=== PATIENT | female | born 1985 | race Caucasian/White ===

== ENCOUNTER 2016-06-20 18:45 | Emergency (ER) | payer OTHER ==
[~2016-06-20] VITALS: Ht 165.1 cm; Wt 82.3 kg
[~2016-06-20 18:45] MED LIST: PRLSR20 PO
[2016-06-20 18:47] VITALS: TEMP 36.9; Ht 165.1 cm; Wt 82.3 kg
[2016-06-20] MEDS ORDERED: HYDROmorphone INJ 2 MG/ML SYR/VIAL IM STA (19:00)
[2016-06-20] MEDS ORDERED: PROMETHAZINE HCL INJ 25 MG/ML 1 ML VIAL IM STA (19:00)
[2016-06-20 19:22] VITALS: BP 148/109; PULSE 79; O2SAT 98
--- NOTE | 2016-06-22 12:59 | EMERGENCY ROOM VISIT NOTE ---
ED Visit Note First contact with patient: 18:50 CHIEF COMPLAINT: Migraine headache. HISTORY OF PRESENT ILLNESS: Ms. Henson is a 30 year-old white female who ambulates into the ED accompanied by a male friend complaining of a migraine headache. She reports a gradual onset of a severe migraine headache that started approximately 5 hours ago. The pain is constant and it is slowly increasing in severity. This is not the worst headache of the life and is similar to previous migraines. Currently she describes the headache as a throbbing sensation/pain in the over the bilateral/occipital areas. She rates the pain a 9/10. The pain is nonradiating. She has not identified any aggravating or alleviating factors related to the pain. She reports she has taken ibuprofen without relief of her discomfort. There is been associated nausea without vomiting, mild light and hearing sensitivity. She denies fever, chills, sinus infection, runny nose, sore throat, weakness or numbness of the extremities, difficulty with speech, hearing or vision, trauma to the head and neck pain/stiffness. REVIEW OF SYSTEMS: As noted above in History of Present Illness. All body systems were reviewed with this patient and found to be negative unless noted above otherwise. PAST MEDICAL HISTORY: Pneumonia, unspecified stomach stomach disorder, leukemia , anemia, chronic fatigue syndrome, scoliosis, appendectomy, femur fracture repair. CURRENT MEDICATIONS: Multivitamins, control, iron, Protonix, Flexeril, Vicodin. ALLERGIES TO MEDICATIONS: Imitrex, penicillin, oxycodone. SOCIAL HISTORY: Patient is not employed; she lives by herself and feels safe in her home environment; she denies tobacco use; she admits to rare social alcohol use. PHYSICAL EXAM: Vital Signs: Date Time Temp Pulse Resp B/P Pulse Ox O2 Delivery O2 Flow Rate FiO2 06/20/16 19:22 79 18 148/109 98 06/20/16 18:47 36.9 91 18 165/106 96 Room Air GENERAL: 30 year-old white female in moderate distress due to pain, afebrile and hemodynamically stable. NEUROLOGIC: Awake, alert and oriented to person place and time. Answering questions appropriately and following commands. Cranial nerves II-XII grossly intact. No focal neurologic deficits noted. SKIN: Warm, dry and pink. No rashes, lesions or soft tissue trauma noted. HEENT: Normocephalic, atraumatic. Pupils equal, round and reactive. Extraocular movements intact and there is no nystagmus. Sclera anicteric. Ears , nose and oropharynx clear. Funduscopic examination deferred due to light sensitivity. NECK: Soft and supple. No nuchal rigidity or meningismus. No lymphadenopathy , jugular venous distention, or bruits noted. THORAX: Lungs clear to auscultation and equal bilaterally with no wheezing, crackles, rhonchi or stridor and equal chest wall movements. HEART: Regular rate and rhythm with no murmurs, rubs or gallops. ABDOMEN: Soft and nontender with bowel sounds present in all quadrants; no rigidity, rebound tenderness, organomegaly or guarding. MUSCULOSKELETAL: Full range of motion of all joints without any significant discomfort and the gait is normal. ED COURSE: Patient is assessed with history and physical examination. Patient was given 2 mg of Dilaudid and 25 mg of Phenergan IM for the pain and nausea. Patient was reassessed. Patient was educated about her condition and instructed on her treatment plan; she verbalized understanding and agreement with this plan. CLINICAL IMPRESSION: Acute migraine headache. 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 She is afebrile, well appearing, and hemodynamically stable. She has no signs of a sinus, dental , or ear infection and no evidence of meningismus. She is neurologically intact. I do not suspect a headache to be secondary to a subarachnoid hemorrhage, meningitis, encephalitis, or intracranial mass lesion. DISPOSITION: Patient was discharged to home in stable condition accompanied by her ; prior to departure she was reassessed and subjectively reported she was feeling better and rated her discomfort 5/10. DISCHARGE INSTRUCTIONS: Rest at home, in a quiet darkened room and allow the medication to work for the pain. Continue to follow up current treatment plan prescribed by your physician for your migraine headaches. See your own doctor in follow-up this week for continued care and treatment. Return to the emergency department as needed for worsening/uncontrolled pain, any abnormal neurological symptoms, fevers or any new/concerning symptoms or in accordance with her pain management plan.
[2016-10-19] MEDS ORDERED: CPR/500 PO (22:22)
== END 2016-06-20 19:22 | disposition home or self-care (01) ==
LOC: C.EDB 18:45 → C.EDD 19:22
DX: G43.909 Migraine, unspecified, not intractable, without status migrainosus (principal); M41.9 Scoliosis, unspecified; Z85.6 Personal history of leukemia

== ENCOUNTER 2016-06-22 18:38 | Emergency (ER) | payer OTHER ==
[~2016-06-22] VITALS: Ht 165.1 cm; Wt 93.5 kg
[2016-06-22 18:45] VITALS: BP 157/111; TEMP 37.2; Ht 165.1 cm; Wt 93.5 kg
[2016-06-22] MEDS ORDERED: HYDROmorphone INJ 2 MG/ML SYR/VIAL IM STA (19:16)
[2016-06-22] MEDS ORDERED: PROMETHAZINE HCL INJ 25 MG/ML 1 ML VIAL IM STA (19:16)
--- NOTE | 2016-06-22 19:21 | EMERGENCY ROOM VISIT NOTE ---
ED Visit Note First contact with patient: 18:54 CHIEF COMPLAINT: Migraine headache since this afternoon HISTORY OF PRESENT ILLNESS: Patient is a 30-year-old white female who presents emergency department for evaluation of a migraine headache that started this afternoon. Patient is well-known to the emergency department for frequent visits and is on a treatment plan restricting her to 2 narcotic injections per month regarding her migraines. Patient states that she developed a typical, throbbing, 8/10 headache around 4pm today. She used ibuprofen without relief of her symptoms. She is followed by her primary care provider, Dr. Fox, who provides her with monthly prescriptions for Vicodin, which she states that she is presently out of. She has an appointment for her refill next week. She states she has been under a lot of stress recently due to family issues and she is moving. She has been doing a lot of lifting and been in and out of the cold. She reports associated nausea without vomiting. She denies any recent cold or upper respiratory symptoms, fever, chills. No difficulty with balance, speech or coordination, no weakness or numbness of the extremities. This is not the worst headache of the life and is similar to previous migraines. She has been seen by Dr. Blackman and Dr. Carlson of neurology. Previous imaging studies of the brain have been normal. REVIEW OF SYSTEMS: Review of systems as per HPI. All other systems reviewed were negative. 10 systems reviewed. PMH: Electronic medical records are reviewed and summarized as above/below. See Problem List. SOCIAL HISTORY: The patient lives locally with her family. Nonsmoker. PHYSICAL EXAM: Vital Signs: Reviewed Nurse's notes. General Appearance: Well-appearing 30-year-old white female who is awake and alert and sitting on a gurney in no acute distress. Her boyfriend is at the bedside. Eyes: Pupils equal round reactive to light extraocular muscles are intact, no proptosis, no photophobia ENT: Oropharynx is clear, mucous membranes are moist, tympanic membranes are clear bilaterally, no sinus or dental tenderness Neck: Supple, no cervical lymphadenopathy, no meningismus Heart: Regular rate and rhythm, S1 and S2 Lungs: Clear to auscultation bilaterally, no wheezes Rales or rhonchi, no increased work of breathing Abdomen: Soft nontender nondistended. Normal active bowel sounds. No rebound. No guarding. Back: No midline tenderness to palpation. : No CVA tenderness to palpation. Skin: Warm, no diaphoresis, no rashes. Superficial scratch noted to the volar aspect of the left forearm. Extremities: No cyanosis, clubbing, or edema Neurologic: Patient is awake alert, and oriented x 3. Cranial nerves 2-12 are grossly intact. Motor 5 out of 5 strength bilateral upper extremities and lower extremities. No gross sensory deficits. Reflexes are 2+ throughout. EMERGENCY DEPARTMENT COURSE: The patient was seen and evaluated as above. Her old records are reviewed. The patient is on a 2 narcotic injection per month treatment plan for their migraines. This is her second visit for the month of June, she was reminded of this and did wish to proceed. The patient was given 2 mg Dilaudid IM and 25 mg Phenergan IM per their usual protocol. The differential diagnosis includes acute intracranial bleed, meningitis, encephalitis, mass or mass effect, sinusitis, infection, tumor, headache, temporal arteritis and carbon monoxide exposure, and migraine. The patient was discharged home in stable condition with her boyfriend driving. Problem List Medical Problems: (1) Anemia Status: Chronic (2) Appendectomy Status: Resolved (3) Fatigue Status: Chronic (4) Gastroesophageal reflux disease Status: Chronic (5) Headache Status: Chronic (6) Leukemia, disease Status: Chronic (7) Migraine Status: Chronic (8) Migraine Unspecified W/O Intract Mgrn W/O Status Migrainosus Status: Chronic (9) Pneumonia Status: Resolved (10) Scoliosis of thoracic spine Status: Chronic (11) Unspecified Leukemia In Remission Status: Resolved (12) Urin Tract Infection Nos Status: Resolved Current/Historical Medications Scheduled Control Pills ( Control Pills), 1 TAB PO DAILY Ferrous Sulfate (Iron Supplement), 325 MG PO DAILY Ibuprofen (Advil), 200-600 MG PO Q4H Omeprazole (Prilosec), 20 MG PO DAILY Scheduled PRN Cyclobenzaprine Hcl (Flexeril), 10 MG PO TID PRN for SPASMS Hydrocodone/Acetaminophen 5MG/325MG ([place] 5MG/325MG), 1 TABLET PO Q6 PRN for Pain Allergies Coded Allergies: Penicillins (Verified Allergy, Unknown, "BREATHING PROBLEMS", 06/20/16) Oxycodone (Verified Adverse Reaction, Unknown, GI UPSET, 06/20/16) FROM OXYCODONE; NOT APAP Sumatriptan (Verified Adverse Reaction, Unknown, "MAKES HEADACHE WORSE", ) Vital Signs Date Time Temp Pulse Resp B/P Pulse Ox O2 Delivery O2 Flow Rate FiO2 06/22/16 18:45 37.2 89 18 157/111 97 Room Air Departure Information Impression Primary Impression: Headache Referrals Inder Fox M.D. (PCP) Patient Instructions A Signature Page, My [facility] [employer] Additional Instructions DO NOT drive, drink alcohol, operate machinery, or perform dangerous activities today. You were given medications in the ER that can affect your ability to safely function or operate a vehicle. Rest today in a quiet, peaceful, dark environment and get a full 8-10 hrs of sleep tonight. Avoid loud noises, smoke/smoking, alcohol, bright lights, stress, or physical exertion today to minimize the chance the headache may return. Continue current medications. Ibuprofen(Motrin, Advil) may be used for fever or pain. Use 600mg every six hours as needed. Take with food. Avoid using more than 2400mg in a 24 hour period. Do not use 2400mg per day for more than three consecutive days without physician direction. Prolonged inappropriate use can lead to stomach upset or ulcers. (AND/OR) Acetaminophen(Tylenol) may be used for fever or pain. Use 1000mg every six hours as needed. Avoid using more than 3000mg in a 24 hour period. Return to the ER for passing out, worsening headache, vision problems, neck stiffness/pain, fevers, vomiting, worsening of your condition, or as needed. Follow up with your primary physician as scheduled.
[2016-06-22 20:03] VITALS: PULSE 82; O2SAT 96
[2016-10-19] MEDS ORDERED: CPR/500 PO (22:22)
== END 2016-06-22 20:05 | disposition home or self-care (01) ==
LOC: C.EDB 18:39 → C.EDD 20:05
DX: R51 Headache (principal); K21.9 Gastro-esophageal reflux disease without esophagitis

== ENCOUNTER 2016-07-20 17:50 | Emergency (ER) | payer OTHER ==
[~2016-07-20] VITALS: Ht 165.1 cm; Wt 81.3 kg
[2016-07-20 18:01] VITALS: BP 150/104; PULSE 96; TEMP 37; O2SAT 92; Ht 165.1 cm; Wt 81.3 kg
[2016-07-20] MEDS ORDERED: HYDROmorphone INJ 2 MG/ML SYR/VIAL IM STA (18:14)
[2016-07-20] MEDS ORDERED: PROMETHAZINE HCL INJ 25 MG/ML 1 ML VIAL IM STA (18:14)
--- NOTE | 2016-07-20 18:19 | EMERGENCY ROOM VISIT NOTE ---
ED Visit Note First contact with patient: 18:06 CHIEF COMPLAINT: Severe Migraine HISTORY OF PRESENT ILLNESS: This 30-year-old female patient presented to the emergency department private vehicle coming by mouth friend with a gradual onset of a severe generalized headache that started around 1 PM today. The patient states the migraine is similar to their typical migraines. There has been associated nausea but no vomiting. The patient denies fever or chills recently, and there is no weakness or numbness of the extremities. There is no difficulty with speech or vision. No trauma to the head and no neck pain. The pain is severe, constant, and it is slowly increasing in severity. The patient rates the pain as 8/10. This is not the worst headache of the life and is similar to previous migraines. Previous imaging studies of the brain have been normal. REVIEW OF SYSTEMS: A review of systems was performed with positives and pertinent negatives listed in the history of present illness. All other systems were reviewed and are negative. ALLERGIES: As noted below MEDICATIONS: As noted below PMH: Pneumonia, stomach problems, chronic fatigue, chronic migraines, scoliosis , anemia, acid reflux, childhood leukemia SOCIAL HISTORY: Patient lives at home with daughter and boyfriend. PHYSICAL EXAM: Vital Signs: Reviewed Nurse's notes, vital signs stable. GENERAL : A 30-year-old female, who appears in pain, but non toxic in appearance and in no acute distress. MENTAL STATUS: Alert, oriented, and coherent. HEENT: Normocephalic. PERRLA. EOMI. Nares patent without nuchal rigidity. Tympanic membranes pearly rasmussen without erythema or effusion bilaterally. Mucous membranes moist. NECK: Supple, no nuchal rigidity, nontender, no lymphadenopathy. HEART: Regular rhythm and normal rate without murmurs, ectopy, gallops, or rubs. LUNGS: Clear to auscultation bilaterally without wheezes, rales or rhonchi. No dullness to percussion. No accessory muscle use. No retractions. SKIN: Normal. NEUROLOGICAL: Pupils are round, equal and react to light. The patient moves all extremities well and the gait is normal. EMERGENCY DEPARTMENT COURSE: I examined the patient. The patient is on a 2 narcotic injection per month treatment plan for their migraines. The patient was given 2 mg of Dilaudid, 25 mg of Phenergan IM per their usual protocol. The differential diagnosis includes acute intracranial bleed, meningitis, encephalitis, mass or mass effect, sinusitis, infection, tumor, headache, temporal arteritis and carbon monoxide exposure, and migraine. The patient was discharged home in stable condition with a male friend driving. DIAGNOSIS: Migraine headache Problem List Medical Problems: (1) Anemia Status: Chronic (2) Appendectomy Status: Resolved (3) Fatigue Status: Chronic (4) Gastroesophageal reflux disease Status: Chronic (5) Headache Status: Chronic (6) Leukemia, disease Status: Chronic (7) Migraine Status: Chronic (8) Migraine Unspecified W/O Intract Mgrn W/O Status Migrainosus Status: Chronic (9) Pneumonia Status: Resolved (10) Scoliosis of thoracic spine Status: Chronic (11) Unspecified Leukemia In Remission Status: Resolved (12) Urin Tract Infection Nos Status: Resolved Current/Historical Medications Scheduled Control Pills ( Control Pills), 1 TAB PO DAILY Ferrous Sulfate (Iron Supplement), 325 MG PO DAILY Omeprazole (Prilosec), 20 MG PO DAILY Scheduled PRN Cyclobenzaprine Hcl (Flexeril), 10 MG PO TID PRN for SPASMS Hydrocodone/Acetaminophen 5MG/325MG ([place] 5MG/325MG), 1 TABLET PO Q6 PRN for Pain Ibuprofen (Advil), 200-600 MG PO Q4H PRN for Pain Allergies Coded Allergies: Penicillins (Verified Allergy, Unknown, "BREATHING PROBLEMS", 06/22/16) Oxycodone (Verified Adverse Reaction, Unknown, GI UPSET, 06/22/16) FROM OXYCODONE; NOT APAP Sumatriptan (Verified Adverse Reaction, Unknown, "MAKES HEADACHE WORSE", ) Vital Signs Date Time Temp Pulse Resp B/P Pulse Ox O2 Delivery O2 Flow Rate FiO2 07/20/16 18:29 98 Room Air 07/20/16 18:21 99 Room Air 07/20/16 18:01 37.0 96 18 150/104 92 Room Air Medications Administered Medications (Trade) Dose Ordered Sig/Merlin Route Start Time Stop Time Status Last Admin Dose Admin Hydromorphone HCl (Dilaudid Inj) 2 mg NOW STAT IM 07/20/16 18:14 07/20/16 18:16 DC 07/20/16 18:19 2 MG Promethazine HCl (Phenergan Inj) 25 mg NOW STAT IM 07/20/16 18:14 07/20/16 18:16 DC 07/20/16 18:19 25 MG Departure Information Impression Primary Impression: Headache Condition GOOD Referrals Inder Fox M.D. (PCP) Patient Instructions My [facility] Additional Instructions You have been treated in the Emergency Department for a Headache. You have received pain medicine in the emergency department which impairs your ability to operate a vehicle. It is illegal for you to drive after receiving these medicines. For pain control, you can use the following [id number] medicines (if >12 yo): - Regular strength (325mg/tab) Tylenol (acetaminophen) 2 tabs every 4-6 hours as needed. Do not exceed 12 tablets in a 24 hour period. Avoid taking more than 4 grams (4000 mg) of Tylenol per day. This includes any other sources of acetaminophen you may take on a regular basis. - Regular strength (200 mg/tab) Advil (ibuprofen) 1-2 tabs every 4-6 hours as needed. Do not exceed a dose of 3200 mg per day. You should relax in a quiet, dark place for the rest of the day. Avoid any possible triggers including: cigarette smoke, caffeine, nicotine, chocolate, wine, beer, loud noises or music, or bright lights. You should schedule a follow-up appointment in 2-3 days with your Primary Care Provider or established Neurologist for further evaluation and treatment of your Headache. Return to the Emergency Department if your current symptoms worsen despite treatment course outlined above, or if you develop any of the following symptoms : intractable pain despite aforementioned treatment course, visual disturbances , loss of vision, unilateral weakness or facial drooping, slurring of speech, loss of coordination, or loss of consciousness. Please return to the emergency department with any new/concerning symptoms. Problem Qualifiers Primary Impression: Headache Headache type: unspecified Headache chronicity pattern: chronic headache Intractability: not intractable Qualified Codes: R51 - Headache
[2016-07-20 18:29] VITALS: O2SAT 98
[2016-07-21] MEDS ORDERED: HYDR-5688 PO (17:44)
[2016-07-21] MEDS ORDERED: IBUP-1050 PO (19:12)
[2016-07-21] MEDS ORDERED: FERR325T51 PO (21:47)
[2016-07-21] MEDS ORDERED: BCPILLS PO (21:48)
[2016-07-21] MEDS ORDERED: CYCL10TA6 PO (21:50)
[2016-10-19] MEDS ORDERED: CPR/500 PO (22:22)
== END 2016-07-20 18:38 | disposition home or self-care (01) ==
LOC: C.EDB 17:51 → C.EDD 18:38
DX: G43.909 Migraine, unspecified, not intractable, without status migrainosus (principal); K21.9 Gastro-esophageal reflux disease without esophagitis; D64.9 Anemia, unspecified; Z85.6 Personal history of leukemia; Z87.440 Personal history of urinary (tract) infections; Z79.899 Other long term (current) drug therapy; Z88.0 Allergy status to penicillin; Z88.5 Allergy status to narcotic agent

== ENCOUNTER 2016-07-21 15:10 | Emergency (ER) | payer OTHER ==
[~2016-07-21] VITALS: Ht 165.1 cm; Wt 78.1 kg
[2016-07-21 15:15] VITALS: TEMP 36.9; Ht 165.1 cm; Wt 78.1 kg
[2016-07-21] MEDS ORDERED: PROMETHAZINE HCL INJ 25 MG/ML 1 ML VIAL IM STA (15:27)
[2016-07-21] MEDS ORDERED: HYDROmorphone INJ 2 MG/ML SYR/VIAL IM STA (15:27)
--- NOTE | 2016-07-21 15:32 | EMERGENCY ROOM VISIT NOTE ---
ED Visit Note First contact with patient: 15:19 CHIEF COMPLAINT: Severe Migraine HISTORY OF PRESENT ILLNESS: This 30-year-old female patient presented to the emergency department private vehicle coming by mouth friend with a gradual onset of a severe generalized headache that started around 7AM today. The patient states the migraine is similar to their typical migraines and this time is There has been associated nausea but no vomiting. The patient denies fever or chills recently, and there is no weakness or numbness of the extremities. There is no difficulty with speech or vision. No trauma to the head and no neck pain. The pain is severe, constant, and it is slowly increasing in severity. The patient rates the pain as 8/10. This is not the worst headache of the life and is similar to previous migraines. Previous imaging studies of the brain have been normal. REVIEW OF SYSTEMS: A review of systems was performed with positives and pertinent negatives listed in the history of present illness. All other systems were reviewed and are negative. ALLERGIES: As noted below MEDICATIONS: As noted below PMH: Pneumonia, stomach problems, chronic fatigue, chronic migraines, scoliosis , anemia, acid reflux, childhood leukemia SOCIAL HISTORY: Patient lives at home with daughter and boyfriend. PHYSICAL EXAM: Vital Signs: Reviewed Nurse's notes, vital signs stable. GENERAL : A 30-year-old female, who appears in pain, but non toxic in appearance and in no acute distress. MENTAL STATUS: Alert, oriented, and coherent. HEENT: Normocephalic. PERRLA. EOMI. Nares patent without nuchal rigidity. Tympanic membranes pearly rasmussen without erythema or effusion bilaterally. Mucous membranes moist. NECK: Supple, no nuchal rigidity, nontender, no lymphadenopathy. HEART: Regular rhythm and normal rate without murmurs, ectopy, gallops, or rubs. LUNGS: Clear to auscultation bilaterally without wheezes, rales or rhonchi. No dullness to percussion. No accessory muscle use. No retractions. SKIN: Normal. NEUROLOGICAL: Pupils are round, equal and react to light. The patient moves all extremities well and the gait is normal. EMERGENCY DEPARTMENT COURSE: I examined the patient. The patient is on a 2 narcotic injection per month treatment plan for their migraines. The patient was given 2 mg of Dilaudid, 25 mg of Phenergan IM per their usual protocol. She was offered a CT scan of her head for her headache but declined indicating that she has had a CT and MRI in the past which have been normal and ruled out mass, aneurysm or clot. I saw her yesterday for a migraine and this appears benign. I evaluated this patient yesterday for a similar complaint, I am familiar with her case.The differential diagnosis includes acute intracranial bleed, meningitis, encephalitis, mass or mass effect, sinusitis, infection, tumor, headache, temporal arteritis and carbon monoxide exposure, and migraine. The patient was discharged home in stable condition with a male friend driving. In the evaluation and treatment of this patient, the following differential diagnoses were considered: Migraine Headache, Intracranial Hemorrhage, Subdural Hematoma, Subarachnoid Hemorrhage, Cerebral Aneurysm, Temporal/Giant Cell Arteritis, Tension Headache, Meningitis, Encephalitis, or Hydrocephalus. Problem List Medical Problems: (1) Anemia Status: Chronic (2) Appendectomy Status: Resolved (3) Fatigue Status: Chronic (4) Gastroesophageal reflux disease Status: Chronic (5) Headache Status: Chronic (6) Leukemia, disease Status: Chronic (7) Migraine Status: Chronic (8) Migraine Unspecified W/O Intract Mgrn W/O Status Migrainosus Status: Chronic (9) Pneumonia Status: Resolved (10) Scoliosis of thoracic spine Status: Chronic (11) Unspecified Leukemia In Remission Status: Resolved (12) Urin Tract Infection Nos Status: Resolved Current/Historical Medications Scheduled Control Pills ( Control Pills), 1 TAB PO DAILY Ferrous Sulfate (Iron Supplement), 325 MG PO DAILY Omeprazole (Prilosec), 20 MG PO DAILY Scheduled PRN Cyclobenzaprine Hcl (Flexeril), 10 MG PO TID PRN for SPASMS Hydrocodone/Acetaminophen 5MG/325MG ([place]iss 5MG/325MG), 1 TABLET PO Q6 PRN for Pain Ibuprofen (Advil), 200-600 MG PO Q4H PRN for Pain Allergies Coded Allergies: Penicillins (Verified Allergy, Unknown, "BREATHING PROBLEMS", 06/22/16) Oxycodone (Verified Adverse Reaction, Unknown, GI UPSET, 06/22/16) FROM OXYCODONE; NOT APAP Sumatriptan (Verified Adverse Reaction, Unknown, "MAKES HEADACHE WORSE", ) Vital Signs Date Time Temp Pulse Resp B/P Pulse Ox O2 Delivery O2 Flow Rate FiO2 07/21/16 16:09 79 16 149/114 98 07/21/16 15:43 79 16 149/114 98 Room Air 07/21/16 15:15 36.9 96 17 150/101 98 Room Air Medications Administered Medications (Trade) Dose Ordered Sig/Merlin Route Start Time Stop Time Status Last Admin Dose Admin Hydromorphone HCl (Dilaudid Inj) 2 mg NOW STAT IM 07/21/16 15:27 07/21/16 15:28 DC 07/21/16 15:43 2 MG Promethazine HCl (Phenergan Inj) 25 mg NOW STAT IM 07/21/16 15:27 07/21/16 15:28 DC 07/21/16 15:42 25 MG Departure Information Impression Primary Impression: Headache Dispostion Home / Self-Care Condition GOOD Referrals Inder Fox M.D. (PCP) Patient Instructions [facility] Additional Instructions You have been treated in the Emergency Department for a Headache. You have received pain medicine in the emergency department which impairs your ability to operate a vehicle. It is illegal for you to drive after receiving these medicines. For pain control, you can use the following [id number] medicines (if >12 yo): - Regular strength (325mg/tab) Tylenol (acetaminophen) 2 tabs every 4-6 hours as needed. Do not exceed 12 tablets in a 24 hour period. Avoid taking more than 4 grams (4000 mg) of Tylenol per day. This includes any other sources of acetaminophen you may take on a regular basis. - Regular strength (200 mg/tab) Advil (ibuprofen) 1-2 tabs every 4-6 hours as needed. Do not exceed a dose of 3200 mg per day. You should relax in a quiet, dark place for the rest of the day. Avoid any possible triggers including: cigarette smoke, caffeine, nicotine, chocolate, wine, beer, loud noises or music, or bright lights. You should schedule a follow-up appointment in 2-3 days with your Primary Care Provider or established Neurologist for further evaluation and treatment of your Headache. Please keep your appointment for July 29 as you indicated. Return to the Emergency Department if your current symptoms worsen despite treatment course outlined above, or if you develop any of the following symptoms : intractable pain despite aforementioned treatment course, visual disturbances , loss of vision, unilateral weakness or facial drooping, slurring of speech, loss of coordination, or loss of consciousness. Please return to the emergency department with any new/concerning symptoms. Problem Qualifiers Primary Impression: Headache Headache chronicity pattern: acute headache Intractability: not intractable
[2016-07-21 16:09] VITALS: BP 149/114; PULSE 79; O2SAT 98
[2016-07-21] MEDS ORDERED: HYDR-5688 PO (17:44)
[2016-07-21] MEDS ORDERED: IBUP-1050 PO (19:12)
[2016-07-21] MEDS ORDERED: FERR325T51 PO (21:47)
[2016-07-21] MEDS ORDERED: BCPILLS PO (21:48)
[2016-07-21] MEDS ORDERED: CYCL10TA6 PO (21:50)
[2016-10-19] MEDS ORDERED: CPR/500 PO (22:22)
== END 2016-07-21 16:05 | disposition home or self-care (01) ==
LOC: C.EDB 15:14 → C.EDD 16:05
DX: G43.909 Migraine, unspecified, not intractable, without status migrainosus (principal); R53.82 Chronic fatigue, unspecified; M41.9 Scoliosis, unspecified; D64.9 Anemia, unspecified; K21.9 Gastro-esophageal reflux disease without esophagitis; Z85.6 Personal history of leukemia; Z79.3 Long term (current) use of hormonal contraceptives

== ENCOUNTER 2016-08-19 19:45 | Emergency (ER) | payer OTHER ==
[~2016-08-19] VITALS: Ht 165.1 cm; Wt 76.4 kg
[~2016-08-19 19:45] MED LIST changes: +BCPILLS PO; +CYCL10TA6 PO; +FERR325T51 PO; +HYDR-5688 PO; +IBUP-1050 PO
[2016-08-19 19:47] VITALS: TEMP 37.2; Ht 165.1 cm; Wt 76.4 kg
[2016-08-19] MEDS ORDERED: PROMETHAZINE HCL INJ 25 MG/ML 1 ML VIAL IM STA (19:59)
[2016-08-19] MEDS ORDERED: HYDROmorphone INJ 2 MG/ML SYR/VIAL IM STA (19:59)
--- NOTE | 2016-08-19 20:06 | EMERGENCY ROOM VISIT NOTE ---
ED Visit Note First contact with patient: 19:51 CHIEF COMPLAINT: Migraine headache HISTORY OF PRESENT ILLNESS: This 30-year-old female patient presented to the emergency department with a gradual onset of a severe generalized headache that started today. She states this feels very typical of her recurrent migraines. Sharp There has been associated photophobia, phonophobia, nausea and vomiting. The patient denies fever or chills recently, and there is no weakness or numbness of the extremities. There is no difficulty with speech or vision. No trauma to the head and no neck pain. The pain is severe, constant, and it is slowly increasing in severity. The patient rates the pain as sharp and 8/10. The patient has taken her usual medications. This is not the worst headache of the life and is similar to previous migraines. Previous imaging studies of the brain (CT scans) have been normal. REVIEW OF SYSTEMS: An 8 system review of systems was completed with positives and pertinent negatives listed in the HPI. ALLERGIES: Oxycodone, penicillin, sumatriptan MEDICATIONS: See nursing notes PMH: GERD, migraines SOCIAL HISTORY: The patient lives locally. She does not smoke PHYSICAL EXAM: Vital Signs: Reviewed Nurse's notes, vital signs stable. MENTAL STATUS: Alert, oriented, and coherent. The patient is in no distress whatsoever. She is playing on her cell phone in a brightly lit room with no discomfort. NECK: Supple, no nuchal rigidity, nontender, no lymphadenopathy. HEART: Regular rhythm and normal rate without murmurs, ectopy, gallops, or rubs. SKIN: Normal. NEUROLOGICAL: Pupils are round, equal and react to light. The optic fundi are normal and the discs are flat. EOMs are full and there is no nystagmus. The patient moves all extremities well and the gait is normal. EMERGENCY DEPARTMENT COURSE: I examined the patient. She is well-known to the emergency department. She is on a 2 shot per month treatment protocol. This is her first visit for the month. She states this is very typical of her usual headache. She denies any fevers, neck pain, neck stiffness, weakness, numbness , tingling. The patient was given 2 mg IM Dilaudid and 25 mg IM Phenergan with relief of their pain. The differential diagnosis includes acute intracranial bleed, meningitis, encephalitis, mass or mass effect, sinusitis, infection, tumor, headache, temporal arteritis and carbon monoxide exposure, and migraine. The patient was discharged home in stable condition with a family member driving. DIAGNOSIS: Migraine headache DISCHARGE INSTRUCTIONS & TREATMENT: Rest at home, resume prescription medications. See your own doctor in follow-up. Problem List Medical Problems: (1) Anemia Status: Chronic (2) Appendectomy Status: Resolved (3) Fatigue Status: Chronic (4) Gastroesophageal reflux disease Status: Chronic (5) Headache Status: Chronic (6) Leukemia, disease Status: Chronic (7) Migraine Status: Chronic (8) Migraine Unspecified W/O Intract Mgrn W/O Status Migrainosus Status: Chronic (9) Pneumonia Status: Resolved (10) Scoliosis of thoracic spine Status: Chronic (11) Unspecified Leukemia In Remission Status: Resolved (12) Urin Tract Infection Nos Status: Resolved Current/Historical Medications Scheduled Control Pills ( Control Pills), 1 TAB PO DAILY Ferrous Sulfate (Kp Ferrous Sulfate), 1 TAB PO DAILY Omeprazole (Prilosec), 20 MG PO DAILY Scheduled PRN Cyclobenzaprine Hcl (Flexeril), 10 MG PO TID PRN for SPASMS Hydrocodone/Acetaminophen 5MG/325MG ([place] 5MG/325MG), 1 TABLET PO Q6 PRN for Pain Ibuprofen (Advil), 200-600 MG PO Q4H PRN for Pain Allergies Coded Allergies: Penicillins (Verified Allergy, Unknown, "BREATHING PROBLEMS", 08/19/16) Oxycodone (Verified Adverse Reaction, Unknown, GI UPSET, 08/19/16) FROM OXYCODONE; NOT APAP Sumatriptan (Verified Adverse Reaction, Unknown, "MAKES HEADACHE WORSE", ) Vital Signs Date Time Temp Pulse Resp B/P Pulse Ox O2 Delivery O2 Flow Rate FiO2 08/19/16 20:27 97 18 108/70 98 08/19/16 19:47 37.2 108 18 97 Room Air Medications Administered Medications (Trade) Dose Ordered Sig/Merlin Route Start Time Stop Time Status Last Admin Dose Admin Hydromorphone HCl (Dilaudid Inj) 2 mg ONE STAT IM 08/19/16 19:59 08/19/16 20:00 DC 08/19/16 20:08 2 MG Promethazine HCl (Phenergan Inj) 25 mg NOW STAT IM 08/19/16 19:59 08/19/16 20:00 DC 08/19/16 19:59 25 MG Departure Information Impression Primary Impression: Migraine Dispostion Home / Self-Care Condition GOOD Referrals Inder Fox M.D. (PCP) Patient Instructions ED Headache Migraine, [facility] Additional Instructions Rest at home, resume prescription medications. See your own doctor in follow- up. Problem Qualifiers Primary Impression: Migraine
[2016-08-19] MEDS ORDERED: FERR1TAB13 PO (20:21)
[2016-08-19 20:27] VITALS: BP 108/70; PULSE 97; O2SAT 98
[2016-10-19] MEDS ORDERED: CPR/500 PO (22:22)
== END 2016-08-19 20:28 | disposition home or self-care (01) ==
LOC: C.EDB 19:46 → C.EDC 20:28
DX: G43.909 Migraine, unspecified, not intractable, without status migrainosus (principal); K21.9 Gastro-esophageal reflux disease without esophagitis; D64.9 Anemia, unspecified; Z85.6 Personal history of leukemia; Z87.440 Personal history of urinary (tract) infections

== ENCOUNTER 2016-08-23 13:19 | Emergency (ER) | payer OTHER ==
[~2016-08-23] VITALS: Ht 165.1 cm; Wt 76.7 kg
[~2016-08-23 13:19] MED LIST changes: +FERR1TAB13 PO; -FERR325T51 PO
[2016-08-23 13:21] VITALS: TEMP 37; Ht 165.1 cm; Wt 76.7 kg
[2016-08-23] MEDS ORDERED: PROMETHAZINE HCL INJ 25 MG/ML 1 ML VIAL IM STA (13:43)
[2016-08-23] MEDS ORDERED: HYDROmorphone INJ 2 MG/ML SYR/VIAL IM ONE (13:45)
[2016-08-23 14:37] VITALS: BP 149/92; PULSE 84; O2SAT 98
--- NOTE | 2016-08-23 22:01 | EMERGENCY ROOM VISIT NOTE ---
ED Visit Note First contact with patient: 13:25 CHIEF COMPLAINT: Migraine headache. HISTORY OF PRESENT ILLNESS: Ms. Henson is a 30 year-old white female who ambulates into the ED accompanied by a male friend complaining of a migraine headache. She reports a gradual onset of a severe migraine headache that started approximately 4 hours ago. The pain is constant and it is slowly increasing in severity. This is not the worst headache of the life and is similar to previous migraines. Currently she describes the headache as a throbbing sensation/pain in the over the bilateral/occipital areas. She rates the pain a 8/10. The pain is nonradiating. She has not identified any aggravating or alleviating factors related to the pain. She reports she has taken ibuprofen without relief of her discomfort. There is been associated nausea without vomiting, mild light and hearing sensitivity. She denies fever, chills, sinus infection, runny nose, sore throat, weakness or numbness of the extremities, difficulty with speech, hearing or vision, trauma to the head and neck pain/stiffness. Additionally she reports approximately 3 hours before the onset of her headache she was up from bed and noticed that she was nauseated. Her daughter awoke this morning with nausea and vomiting. Patient expressed possible concerns about stomach sometimes although she has not been having any abdominal pain or diarrhea. I did inform her that I could evaluate her nausea with additional testing but she refused. REVIEW OF SYSTEMS: As noted above in History of Present Illness. All body systems were reviewed with this patient and found to be negative unless noted above otherwise. PAST MEDICAL HISTORY: Pneumonia, unspecified stomach stomach disorder, leukemia , anemia, chronic fatigue syndrome, scoliosis, appendectomy, femur fracture repair. CURRENT MEDICATIONS: Multivitamins, control, iron, Protonix, Flexeril, Vicodin. ALLERGIES TO MEDICATIONS: Imitrex, penicillin, oxycodone. SOCIAL HISTORY: Patient is not employed; she lives by herself and feels safe in her home environment; she denies tobacco use; she admits to rare social alcohol use. PHYSICAL EXAM: Vital Signs: Date Time Temp Pulse Resp B/P Pulse Ox O2 Delivery O2 Flow Rate FiO2 08/23/16 14:37 84 18 149/92 98 08/23/16 13:21 37.0 88 18 153/100 97 Room Air GENERAL: 30 year-old white female in moderate distress due to pain, afebrile and hemodynamically stable. NEUROLOGIC: Awake, alert and oriented to person place and time. Answering questions appropriately and following commands. Cranial nerves II-XII grossly intact. No focal neurologic deficits noted. SKIN: Warm, dry and pink. No rashes, lesions or soft tissue trauma noted. HEENT: Normocephalic, atraumatic. Pupils equal, round and reactive. Extraocular movements intact and there is no nystagmus. Sclera anicteric. Ears , nose and oropharynx clear. Funduscopic examination deferred due to light sensitivity. NECK: Soft and supple. No nuchal rigidity or meningismus. No lymphadenopathy , jugular venous distention, or bruits noted. THORAX: Lungs clear to auscultation and equal bilaterally with no wheezing, crackles, rhonchi or stridor and equal chest wall movements. HEART: Regular rate and rhythm with no murmurs, rubs or gallops. ABDOMEN: Soft and nontender with bowel sounds present in all quadrants; no rigidity, rebound tenderness, organomegaly or guarding. MUSCULOSKELETAL: Full range of motion of all joints without any significant discomfort and the gait is normal. ED COURSE: Patient is assessed with history and physical examination. Patient was given 2 mg of Dilaudid and 25 mg of Phenergan IM for the pain and nausea. Patient was reassessed. Patient was educated about her condition and instructed on her treatment plan; she verbalized understanding and agreement with this plan. CLINICAL IMPRESSION: Acute migraine headache. 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 She is afebrile, well appearing, and hemodynamically stable. She has no signs of a sinus, dental , or ear infection and no evidence of meningismus. She is neurologically intact. I do not suspect a headache to be secondary to a subarachnoid hemorrhage, meningitis, encephalitis, or intracranial mass lesion. DISPOSITION: Patient was discharged to home in stable condition accompanied by her ; prior to departure she was reassessed and subjectively reported she was feeling better and rated her discomfort 4/10. DISCHARGE INSTRUCTIONS: Rest at home, in a quiet darkened room and allow the medication to work for the pain. Continue to follow up current treatment plan prescribed by your physician for your migraine headaches. See your own doctor in follow-up this week for continued care and treatment. Return to the emergency department as needed for worsening/uncontrolled pain, any abnormal neurological symptoms, fevers or any new/concerning symptoms or in accordance with her pain management plan.
[2016-10-19] MEDS ORDERED: CPR/500 PO (22:22)
== END 2016-08-23 14:30 | disposition home or self-care (01) ==
LOC: C.EDB 13:20 → C.EDC 14:30
DX: G43.909 Migraine, unspecified, not intractable, without status migrainosus (principal); Z87.01 Personal history of pneumonia (recurrent); Z90.89 Acquired absence of other organs

== ENCOUNTER 2016-09-18 14:40 | Emergency (ER) | payer OTHER ==
[~2016-09-18] VITALS: Ht 165.1 cm; Wt 73.8 kg
[2016-09-18 14:42] VITALS: TEMP 36.7; O2SAT 97; Ht 165.1 cm; Wt 73.8 kg
[2016-09-18] MEDS ORDERED: HYDROmorphone INJ 1 MG/ML SYR IM STA (14:56)
[2016-09-18] MEDS ORDERED: PROMETHAZINE HCL INJ 25 MG/ML 1 ML VIAL IM STA (14:56)
--- NOTE | 2016-09-18 15:25 | EMERGENCY ROOM VISIT NOTE ---
ED Visit Note First contact with patient: 14:45 CHIEF COMPLAINT: "Severe migraine headache". HISTORY OF PRESENT ILLNESS: This 31-year-old female patient presented to the emergency department via private vehicle coming by male with a gradual onset of a severe generalized headache that started yesterday evening/this morning. The patient states the migraine is similar to their typical migraines. There has been associated phonophobia, nausea but no vomiting. The patient denies fever or chills recently, and there is no weakness or numbness of the extremities. There is no difficulty with speech or vision. No trauma to the head and no neck pain. The pain is severe, constant, and it is slowly increasing in severity. The patient rates the pain as severe. The patient has taken ibuprofen yesterday evening without relief. This is not the worst headache of the life and is similar to previous migraines. Previous imaging studies of the brain have been normal. REVIEW OF SYSTEMS: A review of systems was performed with positives and pertinent negatives listed in the history of present illness. All other systems were reviewed and are negative. ALLERGIES: As noted below MEDICATIONS: As noted below PMH: Pneumonia, stomach problems, left femur fracture, appendectomy, chronic fatigue, chronic migraine, scoliosis, anemia, acid reflux, prior history of leukemia. SOCIAL HISTORY: Patient lives at home with daughter, denies tobacco and alcohol use. PHYSICAL EXAM: Vital Signs: Reviewed Nurse's notes, vital signs stable. GENERAL : 31-year-old female, who appears in pain, but non toxic in appearance and in no acute distress. MENTAL STATUS: Alert, oriented, and coherent. HEENT: Normocephalic. PERRLA. EOMI. Nares patent without nuchal rigidity. Tympanic membranes pearly rasmussen without erythema or effusion bilaterally. Mucous membranes moist. NECK: Supple, no nuchal rigidity, nontender, no lymphadenopathy. HEART: Regular rhythm and normal rate without murmurs, ectopy, gallops, or rubs. LUNGS: Clear to auscultation bilaterally without wheezes, rales or rhonchi. No dullness to percussion. No accessory muscle use. No retractions. SKIN: Normal. NEUROLOGICAL: Pupils are round, equal and react to light. The patient moves all extremities well and the gait is normal. EMERGENCY DEPARTMENT COURSE: I examined the patient. The patient is on a 2 narcotic injection per month treatment plan for their migraines. The patient was given 2 mg of Dilaudid IM, 25 mg of Phenergan IM per their usual protocol. I personally aware of the patient's case, and have treated her in the past. The differential diagnosis includes acute intracranial bleed, meningitis, encephalitis, mass or mass effect, sinusitis, infection, tumor, headache, temporal arteritis and carbon monoxide exposure, and migraine. The patient was discharged home in stable condition with male driving. In the evaluation and treatment of this patient, the following differential diagnoses were considered: Migraine Headache, Intracranial Hemorrhage, Subdural Hematoma, Subarachnoid Hemorrhage, Cerebral Aneurysm, Temporal/Giant Cell Arteritis, Tension Headache, Meningitis, Encephalitis, or Hydrocephalus. Problem List Medical Problems: (1) Anemia Status: Chronic (2) Appendectomy Status: Resolved (3) Fatigue Status: Chronic (4) Gastroesophageal reflux disease Status: Chronic (5) Headache Status: Chronic (6) Leukemia, disease Status: Chronic (7) Migraine Status: Chronic (8) Migraine Unspecified W/O Intract Mgrn W/O Status Migrainosus Status: Chronic (9) Pneumonia Status: Resolved (10) Scoliosis of thoracic spine Status: Chronic (11) Unspecified Leukemia In Remission Status: Resolved (12) Urin Tract Infection Nos Status: Resolved Current/Historical Medications Scheduled Control Pills ( Control Pills), 1 TAB PO DAILY Ferrous Sulfate (Kp Ferrous Sulfate), 1 TAB PO DAILY Omeprazole (Prilosec), 20 MG PO DAILY Scheduled PRN Cyclobenzaprine Hcl (Flexeril), 10 MG PO TID PRN for SPASMS Hydrocodone/Acetaminophen 5MG/325MG ([place] 5MG/325MG), 1 TABLET PO Q6 PRN for Pain Ibuprofen (Advil), 200-600 MG PO Q4H PRN for Pain Allergies Coded Allergies: Penicillins (Verified Allergy, Unknown, "BREATHING PROBLEMS", 08/19/16) Oxycodone (Verified Adverse Reaction, Unknown, GI UPSET, 08/19/16) FROM OXYCODONE; NOT APAP Sumatriptan (Verified Adverse Reaction, Unknown, "MAKES HEADACHE WORSE", ) Vital Signs Date Time Temp Pulse Resp B/P Pulse Ox O2 Delivery O2 Flow Rate FiO2 09/18/16 15:54 62 18 138/108 09/18/16 14:42 36.7 78 20 158/119 97 Room Air Medications Administered Medications (Trade) Dose Ordered Sig/Merlin Route Start Time Stop Time Status Last Admin Dose Admin Hydromorphone HCl (Dilaudid Inj) 2 mg NOW STAT IM 09/18/16 14:56 09/18/16 14:57 DC 09/18/16 15:37 2 MG Promethazine HCl (Phenergan Inj) 25 mg NOW STAT IM 09/18/16 14:56 09/18/16 14:57 DC 09/18/16 15:36 25 MG Departure Information Impression Primary Impression: Headache Dispostion Home / Self-Care Condition GOOD Referrals Inder Fox M.D. (PCP) Patient Instructions [facility] Additional Instructions You have been treated in the Emergency Department for a Headache. You have received pain medicine in the emergency department which impairs your ability to operate a vehicle. It is illegal for you to drive after receiving these medicines. For pain control, you can use the following [id number] medicines (if >12 yo): - Regular strength (325mg/tab) Tylenol (acetaminophen) 2 tabs every 4-6 hours as needed. Do not exceed 12 tablets in a 24 hour period. Avoid taking more than 4 grams (4000 mg) of Tylenol per day. This includes any other sources of acetaminophen you may take on a regular basis. - Regular strength (200 mg/tab) Advil (ibuprofen) 1-2 tabs every 4-6 hours as needed. Do not exceed a dose of 3200 mg per day. You should relax in a quiet, dark place for the rest of the day. Avoid any possible triggers including: cigarette smoke, caffeine, nicotine, chocolate, wine, beer, loud noises or music, or bright lights. You should schedule a follow-up appointment in 2-3 days with your Primary Care Provider or established Neurologist for further evaluation and treatment of your Headache. Return to the Emergency Department if your current symptoms worsen despite treatment course outlined above, or if you develop any of the following symptoms : intractable pain despite aforementioned treatment course, visual disturbances , loss of vision, unilateral weakness or facial drooping, slurring of speech, loss of coordination, or loss of consciousness. Please return to the emergency department with any new/concerning symptoms.
[2016-09-18 15:54] VITALS: BP 138/108; PULSE 62
[2016-10-19] MEDS ORDERED: CPR/500 PO (22:22)
== END 2016-09-18 15:56 | disposition home or self-care (01) ==
LOC: C.EDB 14:41 → C.EDD 15:56
DX: R51 Headache (principal); K21.9 Gastro-esophageal reflux disease without esophagitis; C95.91 Leukemia, unspecified, in remission; D64.9 Anemia, unspecified; Z87.440 Personal history of urinary (tract) infections; Z79.899 Other long term (current) drug therapy; Z88.0 Allergy status to penicillin; Z88.5 Allergy status to narcotic agent; Z88.8 Allergy status to other drugs, medicaments and biological substances

== ENCOUNTER 2016-09-21 18:31 | Emergency (ER) | payer OTHER ==
[~2016-09-21] VITALS: Ht 165.1 cm; Wt 72.9 kg
[2016-09-21 18:40] VITALS: TEMP 37.1; Ht 165.1 cm; Wt 72.9 kg
[2016-09-21] MEDS ORDERED: PROMETHAZINE HCL INJ 25 MG/ML 1 ML VIAL IM STA (19:05)
[2016-09-21] MEDS ORDERED: HYDROmorphone INJ 2 MG/ML SYR/VIAL IM STA (19:05)
--- NOTE | 2016-09-21 19:09 | EMERGENCY ROOM VISIT NOTE ---
ED Visit Note First contact with patient: 18:43 CHIEF COMPLAINT: Migraine headache HISTORY OF PRESENT ILLNESS: This 31-year-old female patient presented to the emergency department ambulatory with a gradual onset of a severe generalized headache that started this afternoon. The patient states the migraine is similar to their typical migraines. There has been associated photophobia, phonophobia, and nausea but no vomiting. The patient denies fever or chills recently, and there is no weakness or numbness of the extremities. There is no difficulty with speech or vision. No trauma to the head and no neck pain. The pain is severe, constant, and it is slowly increasing in severity. The patient rates the pain as throbbing and 8/10. The patient has taken no medication at home for her symptoms. This is not the worst headache of the life and is similar to previous migraines. Previous imaging studies of the brain have been normal. The patient typically sees her primary care provider. She states that she sometimes takes Vicodin for her headaches, but she is currently out of Vicodin. REVIEW OF SYSTEMS: A review of systems was performed with positives and pertinent negatives listed in the history of present illness. All other systems were reviewed and are negative. ALLERGIES: Oxycodone, penicillins, sumatriptan MEDICATIONS: See med list PMH: Migraine headaches SOCIAL HISTORY: The patient lives locally with family. Nonsmoker. PHYSICAL EXAM: Vital Signs: Reviewed Nurse's notes, vital signs stable. GENERAL : This is a 31-year-old female, in no acute distress, non toxic in appearance. MENTAL STATUS: Alert, oriented, and coherent. HEENT: Normocephalic. PERRLA. EOMI. Nares patent. No meningismus. Tympanic membranes pearly rasmussen without erythema or effusion bilaterally. Mucous membranes moist. NECK: Supple, no nuchal rigidity, nontender, no lymphadenopathy. HEART: Regular rhythm and normal rate without murmurs, ectopy, gallops, or rubs. LUNGS: Clear to auscultation bilaterally without wheezes, rales or rhonchi. No dullness to percussion. No accessory muscle use. No retractions. SKIN: Normal. NEUROLOGICAL: Pupils are round, equal and react to light. The optic fundi are normal and the discs are flat. The patient moves all extremities well and the gait is normal. EMERGENCY DEPARTMENT COURSE: I examined the patient. The patient is on a 2 narcotic injection per month treatment plan for their migraines. The patient was given 2 mg Dilaudid IM and 25 mg Phenergan IM per their usual protocol. The differential diagnosis includes acute intracranial bleed, meningitis, encephalitis, mass or mass effect, sinusitis, infection, tumor, headache, temporal arteritis and carbon monoxide exposure, and migraine. The patient was discharged home in stable condition with her significant other driving. DIAGNOSIS: Migraine headache Problem List Medical Problems: (1) Anemia Status: Chronic (2) Appendectomy Status: Resolved (3) Fatigue Status: Chronic (4) Gastroesophageal reflux disease Status: Chronic (5) Headache Status: Chronic (6) Leukemia, disease Status: Chronic (7) Migraine Status: Chronic (8) Migraine Unspecified W/O Intract Mgrn W/O Status Migrainosus Status: Chronic (9) Pneumonia Status: Resolved (10) Scoliosis of thoracic spine Status: Chronic (11) Unspecified Leukemia In Remission Status: Resolved (12) Urin Tract Infection Nos Status: Resolved Current/Historical Medications Scheduled Control Pills ( Control Pills), 1 TAB PO QPM Ferrous Sulfate (Kp Ferrous Sulfate), 1 TAB PO QPM Omeprazole (Prilosec), 20 MG PO QPM Scheduled PRN Cyclobenzaprine Hcl (Flexeril), 10 MG PO TID PRN for SPASMS Hydrocodone/Acetaminophen 5MG/325MG ([place] 5MG/325MG), 1 TABLET PO Q6 PRN for Pain Ibuprofen (Advil), 200-600 MG PO Q4H PRN for Pain Allergies Coded Allergies: Penicillins (Verified Allergy, Unknown, "BREATHING PROBLEMS", 09/21/16) Oxycodone (Verified Adverse Reaction, Unknown, GI UPSET, 09/21/16) FROM OXYCODONE; NOT APAP Sumatriptan (Verified Adverse Reaction, Unknown, "MAKES HEADACHE WORSE", ) Vital Signs Date Time Temp Pulse Resp B/P Pulse Ox O2 Delivery O2 Flow Rate FiO2 09/21/16 18:40 37.1 86 20 166/111 98 Room Air Departure Information Impression Primary Impression: Migraine Dispostion Home / Self-Care Condition GOOD Referrals Inder oFx M.D. (PCP) Patient Instructions My [facility] Additional Instructions You have been treated in the Emergency Department for a Headache. You have received pain medicine in the emergency department which impairs your ability to operate a vehicle. It is illegal for you to drive after receiving these medicines. Resume your normal medications. Follow-up with your primary care provider for your headaches. Return to the Emergency Department if your current symptoms worsen despite treatment course outlined above, or if you develop any of the following symptoms : intractable pain despite aforementioned treatment course, visual disturbances , loss of vision, unilateral weakness or facial drooping, slurring of speech, loss of coordination, or loss of consciousness. Problem Qualifiers Primary Impression: Migraine Migraine type: unspecified Status migrainosus presence: without status migrainosus Intractability: not intractable Qualified Codes: G43.909 - Migraine, unspecified, not intractable, without status migrainosus
[2016-09-21 19:30] VITALS: BP 162/116; PULSE 95; O2SAT 99
[2016-10-19] MEDS ORDERED: CPR/500 PO (22:22)
== END 2016-09-21 19:30 | disposition home or self-care (01) ==
LOC: C.EDB 18:32 → C.EDD 19:30
DX: G43.909 Migraine, unspecified, not intractable, without status migrainosus (principal); K21.9 Gastro-esophageal reflux disease without esophagitis; C95.91 Leukemia, unspecified, in remission; D64.9 Anemia, unspecified; Z87.440 Personal history of urinary (tract) infections

== ENCOUNTER 2016-11-19 19:38 | Emergency (ER) | payer OTHER ==
[~2016-11-19] VITALS: Ht 165.1 cm; Wt 70.1 kg
[~2016-11-19 19:38] MED LIST changes: +CPR/500 PO
[2016-11-19 19:45] VITALS: BP 158/104; PULSE 85; TEMP 36.7; O2SAT 98; Ht 165.1 cm; Wt 70.1 kg
[2016-11-19] MEDS ORDERED: PROMETHAZINE HCL INJ 50 MG/ML 1 ML VIAL/AMP IM STA (19:52)
[2016-11-19] MEDS ORDERED: HYDROmorphone INJ 2 MG/ML SYR/VIAL IM STA (19:52)
--- NOTE | 2016-11-19 19:54 | EMERGENCY ROOM VISIT NOTE ---
History First contact with patient: 19:46 Chief Complaint: HEADACHE Stated Complaint: SEVERE MIGRAINE HEADACHE History of Present Illness The patient is a 31 year old female who presents to the Emergency Room with complaints of Past Medical/Surgical History Medical Problems: (1) Anemia (2) Appendectomy (3) Fatigue (4) Gastroesophageal reflux disease (5) Headache (6) Leukemia, disease (7) Migraine (8) Migraine Unspecified W/O Intract Mgrn W/O Status Migrainosus (9) Pneumonia (10) Scoliosis of thoracic spine (11) Unspecified Leukemia In Remission (12) Urin Tract Infection Nos Family History Cancer [place] Gallbladder disease Heart disease Hypertension Kidney disease Kidney stones Social History Smoking Status: Never Smoker Alcohol Use: none Drug Use: none Marital Status: Housing Status: lives with family Occupation Status: unemployed Current/Historical Medications Scheduled Control Pills ( Control Pills), 1 TAB PO QPM Ferrous Sulfate (Kp Ferrous Sulfate), 325 MG PO QPM Omeprazole (Prilosec), 20 MG PO QPM Scheduled PRN Cyclobenzaprine Hcl (Flexeril), 10 MG PO TID PRN for SPASMS Hydrocodone/Acetaminophen 5MG/325MG ([place] 5MG/325MG), 1 TABLET PO Q6 PRN for Pain Ibuprofen (Advil), 200-600 MG PO Q4H PRN for Pain Allergies Coded Allergies: Penicillins (Verified Allergy, Unknown, "BREATHING PROBLEMS", 10/19/16) Oxycodone (Verified Adverse Reaction, Unknown, GI UPSET, 10/19/16) FROM OXYCODONE; NOT APAP Sumatriptan (Verified Adverse Reaction, Unknown, "MAKES HEADACHE WORSE", ) Physical Exam Vital Signs Date Time Temp Pulse Resp B/P (MAP) Pulse Ox O2 Delivery O2 Flow Rate FiO2 11/19/16 19:45 36.7 85 18 158/104 98 Room Air Medical Decision & Procedures Medications Administered Medications (Trade) Dose Ordered Sig/Merlin Route Start Time Stop Time Status Last Admin Dose Admin Hydromorphone HCl (Dilaudid Inj) 2 mg NOW STAT IM 11/19/16 19:52 11/19/16 19:54 DC 11/19/16 19:52 2 MG Promethazine HCl (Phenergan Inj) 25 mg NOW STAT IM 11/19/16 19:52 11/19/16 19:54 DC 6/3/17 19:52 25 MG Impression Primary Impression: Headache Departure Information Dispostion Home / Self-Care Condition GOOD Referrals No Doctor, Assigned (PCP) Patient Instructions My [facility] Additional Instructions You have been treated in the Emergency Department for a Headache. You have received pain medicine in the emergency department which impairs your ability to operate a vehicle. It is illegal for you to drive after receiving these medicines. For pain control, you can use the following [id number] medicines (if >12 yo): - Regular strength (325mg/tab) Tylenol (acetaminophen) 2 tabs every 4-6 hours as needed. Do not exceed 12 tablets in a 24 hour period. Avoid taking more than 3 grams (3000 mg) of Tylenol per day. This includes any other sources of acetaminophen you may take on a regular basis. - Regular strength (200 mg/tab) Advil (ibuprofen) 1-2 tabs every 4-6 hours as needed. Do not exceed a dose of 3200 mg per day. You should relax in a quiet, dark place for the rest of the day. Avoid any possible triggers including: cigarette smoke, caffeine, nicotine, chocolate, wine, beer, loud noises or music, or bright lights. You should schedule a follow-up appointment in 2-3 days with your Primary Care Provider or established Neurologist for further evaluation and treatment of your Headache. (Dr. Carlson) Return to the Emergency Department if your current symptoms worsen despite treatment course outlined above, or if you develop any of the following symptoms : intractable pain despite aforementioned treatment course, visual disturbances , loss of vision, unilateral weakness or facial drooping, slurring of speech, loss of coordination, or loss of consciousness. Please return to emergency department with any new/concerning symptoms.
[2016-11-19] MEDS ORDERED: CYCL10TA6 PO (20:01)
--- NOTE | 2016-11-19 20:54 | EMERGENCY ROOM VISIT NOTE ---
ED Visit Note First contact with patient: 19:46 CHIEF COMPLAINT: Migraine headache HISTORY OF PRESENT ILLNESS: This 31-year-old female patient presented to the emergency department via private vehicle accompanied by male with a gradual onset of a severe generalized headache that started 3:30 PM today.. The patient states the migraine is similar to their typical migraines. There has been associated photophobia, phonophobia, nausea and vomiting. The patient denies fever or chills recently, and there is no weakness or numbness of the extremities. There is no difficulty with speech or vision. No trauma to the head and no neck pain. The pain is severe, constant, and it is slowly increasing in severity. The patient rates the pain as throbbing and 8/10. This is not the worst headache of the life and is similar to previous migraines. Previous imaging studies of the brain have been normal from an emergency department standpoint. REVIEW OF SYSTEMS: A review of systems was performed with positives and pertinent negatives listed in the history of present illness. All other systems were reviewed and are negative. ALLERGIES: As noted below MEDICATIONS: As noted below PMH: Migraine headaches SOCIAL HISTORY: Patient lives locally. PHYSICAL EXAM: Vital Signs: Reviewed Nurse's notes, vital signs stable. GENERAL : 31-year-old female, who appears in pain, but non toxic in appearance and in no acute distress. MENTAL STATUS: Alert, oriented, and coherent. HEENT: Normocephalic. PERRLA. EOMI. Nares patent without nuchal rigidity. Tympanic membranes pearly rasmussen without erythema or effusion bilaterally. Mucous membranes moist. NECK: Supple, no nuchal rigidity, nontender, no lymphadenopathy. HEART: Regular rhythm and normal rate without murmurs, ectopy, gallops, or rubs. LUNGS: Clear to auscultation bilaterally without wheezes, rales or rhonchi. No accessory muscle use. No retractions. SKIN: Normal. NEUROLOGICAL: Pupils are round, equal and react to light. The patient moves all extremities well and the gait is normal. EMERGENCY DEPARTMENT COURSE: I examined the patient. The patient is on a 2 narcotic injection per month treatment plan for their migraines. The patient was given 2 mg of Dilaudid, and 25 mg of Phenergan intramuscularly per their usual protocol. The differential diagnosis includes acute intracranial bleed, meningitis, encephalitis, mass or mass effect, sinusitis, infection, tumor, headache, temporal arteritis and carbon monoxide exposure, and migraine. The patient was discharged home in stable condition with male driving. Problem List Medical Problems: (1) Anemia Status: Chronic (2) Appendectomy Status: Resolved (3) Fatigue Status: Chronic (4) Gastroesophageal reflux disease Status: Chronic (5) Headache Status: Chronic (6) Leukemia, disease Status: Chronic (7) Migraine Status: Chronic (8) Migraine Unspecified W/O Intract Mgrn W/O Status Migrainosus Status: Chronic (9) Pneumonia Status: Resolved (10) Scoliosis of thoracic spine Status: Chronic (11) Unspecified Leukemia In Remission Status: Resolved (12) Urin Tract Infection Nos Status: Resolved Current/Historical Medications Scheduled Control Pills ( Control Pills), 1 TAB PO QPM Ferrous Sulfate (Kp Ferrous Sulfate), 325 MG PO QPM Omeprazole (Prilosec), 20 MG PO QPM Scheduled PRN Cyclobenzaprine Hcl (Flexeril), 10 MG PO TID PRN for SPASMS Hydrocodone/Acetaminophen 5MG/325MG ([place] 5MG/325MG), 1 TABLET PO Q6 PRN for Pain Ibuprofen (Advil), 200-600 MG PO Q4H PRN for Pain Allergies Coded Allergies: Penicillins (Verified Allergy, Unknown, "BREATHING PROBLEMS", 10/19/16) Oxycodone (Verified Adverse Reaction, Unknown, GI UPSET, 10/19/16) FROM OXYCODONE; NOT APAP Sumatriptan (Verified Adverse Reaction, Unknown, "MAKES HEADACHE WORSE", ) Vital Signs Date Time Temp Pulse Resp B/P (MAP) Pulse Ox O2 Delivery O2 Flow Rate FiO2 11/19/16 19:45 36.7 85 18 158/104 98 Room Air Medications Administered Medications (Trade) Dose Ordered Sig/Merlin Route Start Time Stop Time Status Last Admin Dose Admin Hydromorphone HCl (Dilaudid Inj) 2 mg NOW STAT IM 11/19/16 19:52 11/19/16 19:54 DC 11/19/16 19:52 2 MG Promethazine HCl (Phenergan Inj) 25 mg NOW STAT IM 11/19/16 19:52 11/19/16 19:54 DC 11/19/16 19:52 25 MG Departure Information Impression Primary Impression: Headache Dispostion Home / Self-Care Condition GOOD Referrals Anna Montoya CRNP (PCP) Forms HOME CARE DOCUMENTATION FORM, IMPORTANT VISIT INFORMATION Patient Instructions My [facility] Additional Instructions You have been treated in the Emergency Department for a Headache. You have received pain medicine in the emergency department which impairs your ability to operate a vehicle. It is illegal for you to drive after receiving these medicines. For pain control, you can use the following [id number] medicines (if >12 yo): - Regular strength (325mg/tab) Tylenol (acetaminophen) 2 tabs every 4-6 hours as needed. Do not exceed 12 tablets in a 24 hour period. Avoid taking more than 3 grams (3000 mg) of Tylenol per day. This includes any other sources of acetaminophen you may take on a regular basis. - Regular strength (200 mg/tab) Advil (ibuprofen) 1-2 tabs every 4-6 hours as needed. Do not exceed a dose of 3200 mg per day. You should relax in a quiet, dark place for the rest of the day. Avoid any possible triggers including: cigarette smoke, caffeine, nicotine, chocolate, wine, beer, loud noises or music, or bright lights. You should schedule a follow-up appointment in 2-3 days with your Primary Care Provider or established Neurologist for further evaluation and treatment of your Headache. (Dr. Carlson) Return to the Emergency Department if your current symptoms worsen despite treatment course outlined above, or if you develop any of the following symptoms : intractable pain despite aforementioned treatment course, visual disturbances , loss of vision, unilateral weakness or facial drooping, slurring of speech, loss of coordination, or loss of consciousness. Please return to emergency department with any new/concerning symptoms.
== END 2016-11-19 20:09 | disposition home or self-care (01) ==
LOC: C.EDB 19:38 → C.EDD 20:09
DX: R51 Headache (principal); D64.9 Anemia, unspecified; K21.9 Gastro-esophageal reflux disease without esophagitis; Z85.6 Personal history of leukemia; Z79.3 Long term (current) use of hormonal contraceptives; Z79.899 Other long term (current) drug therapy

== ENCOUNTER 2016-11-21 16:44 | Emergency (ER) | payer OTHER ==
[~2016-11-21] VITALS: Ht 165.1 cm; Wt 69.7 kg
[~2016-11-21 16:44] MED LIST changes: -CPR/500 PO
[2016-11-21 16:54] VITALS: BP 155/113; PULSE 79; TEMP 37.4; O2SAT 97; Ht 165.1 cm; Wt 69.7 kg
[2016-11-21] MEDS ORDERED: HYDROmorphone INJ 1 MG/ML SYR IM STA (17:37)
[2016-11-21] MEDS ORDERED: PROMETHAZINE HCL INJ 25 MG/ML 1 ML VIAL IM STA (17:37)
--- NOTE | 2016-11-21 18:34 | EMERGENCY ROOM VISIT NOTE ---
History First contact with patient: 17:22 Chief Complaint: HEADACHE Stated Complaint: SEVERE MIGRAINE History of Present Illness The patient is a 31 year old female who presents to the Emergency Room with complaints of a migraine headache since noontime today. The patient reports that she took 2 ibuprofen without any relief. She reports nausea without vomiting. The patient has a history of chronic migraines, and reports that this feels the same with a mostly a posterior headache radiating along both sides of the head. She denies any significant pain extending into the neck. She rates her discomfort an 8 out of 10. She has had no recent change in medications with her neurologist. Review of Systems 10 system review was performed and was negative except for pertinent positives and negatives as indicated in history of present illness Past Medical/Surgical History Medical Problems: (1) Anemia (2) Appendectomy (3) Fatigue (4) Gastroesophageal reflux disease (5) Headache (6) Leukemia, disease (7) Migraine (8) Migraine Unspecified W/O Intract Mgrn W/O Status Migrainosus (9) Pneumonia (10) Scoliosis of thoracic spine (11) Unspecified Leukemia In Remission (12) Urin Tract Infection Nos Family History Cancer [place] Gallbladder disease Heart disease Hypertension Kidney disease Kidney stones Social History Smoking Status: Never Smoker Alcohol Use: none Drug Use: none Marital Status: Housing Status: lives with family Occupation Status: unemployed Current/Historical Medications Scheduled Control Pills ( Control Pills), 1 TAB PO QPM Ferrous Sulfate (Kp Ferrous Sulfate), 325 MG PO QPM Omeprazole (Prilosec), 20 MG PO QPM Scheduled PRN Cyclobenzaprine Hcl (Flexeril), 10 MG PO TID PRN for SPASMS Hydrocodone/Acetaminophen 5MG/325MG ([place] 5MG/325MG), 1 TABLET PO Q6 PRN for Pain Ibuprofen (Advil), 200-600 MG PO Q4H PRN for Pain Allergies Coded Allergies: Penicillins (Verified Allergy, Unknown, "BREATHING PROBLEMS", 10/19/16) Oxycodone (Verified Adverse Reaction, Unknown, GI UPSET, 10/19/16) FROM OXYCODONE; NOT APAP Sumatriptan (Verified Adverse Reaction, Unknown, "MAKES HEADACHE WORSE", ) Physical Exam Vital Signs Date Time Temp Pulse Resp B/P (MAP) Pulse Ox O2 Delivery O2 Flow Rate FiO2 11/21/16 16:54 37.4 79 20 155/113 97 Room Air Pain Rating (0-10): 6.0 Physical Exam CONSTITUTIONAL: Healthy and well nourished. Alert and oriented X 3 with positive affect. HEENT: Normocephalic, atraumatic. Pupils equal, round and reactive. Patient is photophobic, precluding funduscopic exam. NECK: Full active range of motion without discomfort. No JVD or carotid bruits. No nuchal rigidity. RESPIRATORY: Clear to auscultation bilaterally with no wheezing, crackles, rhonchi or stridor. CARDIOVASCULAR: Regular rate and rhythm with no murmurs, rubs or gallops. MUSCULOSKELETAL: Full range of motion of all joints without discomfort. INTEGUMENTARY: No rash or other significant dermatologic conditions noted. NEUROLOGIC: Cranial nerves II-XII grossly intact. No focal neurologic deficits noted. Normal finger to nose test. Negative pronator drift. No ataxia with ambulation. Medical Decision & Procedures Medications Administered Medications (Trade) Dose Ordered Sig/Merlin Route Start Time Stop Time Status Last Admin Dose Admin Hydromorphone HCl (Dilaudid Inj) 1 mg ONE STAT IM 11/21/16 17:37 11/21/16 17:39 DC 11/21/16 17:56 1 MG Promethazine HCl (Phenergan Inj) 25 mg NOW STAT IM 11/21/16 17:37 11/21/16 17:39 DC 11/21/16 17:56 25 MG ED Course Patient history and physical exam were performed. Nurse's notes were reviewed. Vital signs were reviewed, showing a blood pressure 155/113. Review of records shows that the patient is currently on a treatment plan of 2 narcotic injections monthly. This is her second visit of the month. Per her treatment plan, she was administered Dilaudid 2 mg and Phenergan 25 mg IM. She was instructed to follow-up with your family doctor or neurologist for further migraine management. She is welcome to return to the emergency department for further nonnarcotic treatment or further workup, especially if her symptoms are different than her usual migraine. The patient was also instructed to follow- up with her family doctor to have her blood pressure rechecked. The patient was happy with plan of care, and voiced understanding of all discharge instructions. Medical Decision Patient presents with complaint of a migraine headache that is similar to all prior migrainous events. I do not feel that further imaging or laboratory studies are warranted. Based on history and physical exam, I do not suspect meningitis, abscess, intracranial bleed, CVA/TIA, thromboembolic event or carbon monoxide poisoning. Impression Primary Impression: Migraine Additional Impression: Elevated blood pressure reading Departure Information Dispostion Home / Self-Care Condition GOOD Referrals Anna Montoya CRNP (PCP) Forms HOME CARE DOCUMENTATION FORM, IMPORTANT VISIT INFORMATION Patient Instructions My [facility] Additional Instructions Rest and remain well-hydrated. Follow-up with your family doctor or neurologist as needed for further migraine management. Return to the emergency department for worsening symptoms. Problem Qualifiers Primary Impression: Migraine Migraine type: unspecified Status migrainosus presence: without status migrainosus Intractability: not intractable Qualified Codes: G43.909 - Migraine, unspecified, not intractable, without status migrainosus
== END 2016-11-21 17:58 | disposition home or self-care (01) ==
LOC: C.EDB 16:45 → C.EDD 17:58
DX: G40.909 Epilepsy, unspecified, not intractable, without status epilepticus (principal); K21.9 Gastro-esophageal reflux disease without esophagitis; D64.9 Anemia, unspecified; Z85.6 Personal history of leukemia; Z87.440 Personal history of urinary (tract) infections; Z98.890 Other specified postprocedural states; Z79.899 Other long term (current) drug therapy; Z88.0 Allergy status to penicillin; Z88.5 Allergy status to narcotic agent; Z88.8 Allergy status to other drugs, medicaments and biological substances; Z80.9 Family history of malignant neoplasm, unspecified; Z83.79 Family history of other diseases of the digestive system; Z82.49 Family history of ischemic heart disease and other diseases of the circulatory system; Z84.1 Family history of disorders of kidney and ureter

== ENCOUNTER 2016-12-17 23:57 | Emergency (ER) | payer OTHER ==
[~2016-12-17] VITALS: Ht 165.1 cm; Wt 72.5 kg
[2016-12-18 00:06] VITALS: Ht 165.1 cm; Wt 72.5 kg
[2016-12-18] MEDS ORDERED: HYDROmorphone INJ 2 MG/ML SYR/VIAL IM STA (00:14)
[2016-12-18] MEDS ORDERED: PROMETHAZINE HCL INJ 25 MG/ML 1 ML VIAL IM STA (00:14)
--- NOTE | 2016-12-18 00:33 | EMERGENCY ROOM VISIT NOTE ---
ED Visit Note First contact with patient: 00:10 CHIEF COMPLAINT: Migraine headache HISTORY OF PRESENT ILLNESS: This 31-year-old female patient presented to the emergency department with a gradual onset of a severe generalized headache that started around 6 hours prior to arrival. The patient states the migraine is similar to their typical migraines. There has been associated photophobia, phonophobia, nausea and vomiting. The patient denies fever or chills recently, and there is no weakness or numbness of the extremities. There is no difficulty with speech or vision. No trauma to the head and no neck pain. The pain is severe, constant, and it is slowly increasing in severity. The patient rates the pain as dull and 7/10. The patient has taken nothing for her symptoms. This is not the worst headache of the life and is similar to previous migraines. Previous imaging studies of the brain have been normal. REVIEW OF SYSTEMS: A review of systems was performed with positives and pertinent negatives listed in the history of present illness. All other systems were reviewed and are negative. ALLERGIES: See EMR MEDICATIONS: See EMR PMH: Chronic migraines SOCIAL HISTORY: Lives locally PHYSICAL EXAM: Vital Signs: Reviewed Nurse's notes, vital signs stable. GENERAL: White female, who appears in pain, but non toxic in appearance and in no acute distress. MENTAL STATUS: Alert, oriented, and coherent. HEENT: Normocephalic. PERRLA. EOMI. Nares patent without nuchal rigidity. Tympanic membranes pearly rasmussen without erythema or effusion bilaterally. Mucous membranes moist. NECK: Supple, no nuchal rigidity, nontender, no lymphadenopathy. HEART: Regular rhythm and normal rate without murmurs, ectopy, gallops, or rubs. LUNGS: Clear to auscultation bilaterally without wheezes, rales or rhonchi. No dullness to percussion. No accessory muscle use. No retractions. SKIN: Normal. NEUROLOGICAL: Pupils are round, equal and react to light. The optic fundi are normal and the discs are flat. The patient moves all extremities well and the gait is normal. EMERGENCY DEPARTMENT COURSE: I examined the patient. The patient is on a 2 narcotic injection per month treatment plan for their migraines. The patient was given 2 mg IM Dilaudid and 25 mg IM Phenergan per their usual protocol. The differential diagnosis includes acute intracranial bleed, meningitis, encephalitis, mass or mass effect, sinusitis, infection, tumor, headache, temporal arteritis and carbon monoxide exposure, and migraine. The patient was discharged home in stable condition with a male hospital attendant driving. DIAGNOSIS: Migraine headache DISCHARGE INSTRUCTIONS & TREATMENT: No driving or alcohol. Rest at home in a quiet dark place. Continue medications as prescribed. Follow up with family doctor if symptoms persist. Problem List Medical Problems: (1) Anemia Status: Chronic (2) Appendectomy Status: Resolved (3) Fatigue Status: Chronic (4) Gastroesophageal reflux disease Status: Chronic (5) Headache Status: Chronic (6) Leukemia, disease Status: Chronic (7) Migraine Status: Chronic (8) Migraine Unspecified W/O Intract Mgrn W/O Status Migrainosus Status: Chronic (9) Pneumonia Status: Resolved (10) Scoliosis of thoracic spine Status: Chronic (11) Unspecified Leukemia In Remission Status: Resolved (12) Urin Tract Infection Nos Status: Resolved Current/Historical Medications Scheduled Control Pills ( Control Pills), 1 TAB PO QPM Ferrous Sulfate (Kp Ferrous Sulfate), 325 MG PO QPM Omeprazole (Prilosec), 20 MG PO QPM Scheduled PRN Cyclobenzaprine Hcl (Flexeril), 10 MG PO TID PRN for SPASMS Hydrocodone/Acetaminophen 5MG/325MG ([place] 5MG/325MG), 1 TABLET PO Q6 PRN for Pain Ibuprofen (Advil), 200-600 MG PO Q4H PRN for Pain Allergies Coded Allergies: Penicillins (Verified Allergy, Unknown, "BREATHING PROBLEMS", 12/18/16) Oxycodone (Verified Adverse Reaction, Unknown, GI UPSET, 12/18/16) FROM OXYCODONE; NOT APAP Sumatriptan (Verified Adverse Reaction, Unknown, "MAKES HEADACHE WORSE", ) Vital Signs Date Time Temp Pulse Resp B/P (MAP) Pulse Ox O2 Delivery O2 Flow Rate FiO2 12/18/16 00:06 36.7 84 18 148/99 99 Room Air Medications Administered Medications (Trade) Dose Ordered Sig/Merlin Route Start Time Stop Time Status Last Admin Dose Admin Hydromorphone HCl (Dilaudid Inj) 2 mg NOW STAT IM 12/18/16 00:14 12/18/16 00:15 DC 12/18/16 00:28 2 MG Promethazine HCl (Phenergan Inj) 25 mg NOW STAT IM 12/18/16 00:14 12/18/16 00:15 DC 12/18/16 00:27 25 MG Departure Information Impression Primary Impression: Migraine Dispostion Home / Self-Care Condition GOOD Forms HOME CARE DOCUMENTATION FORM, IMPORTANT VISIT INFORMATION Patient Instructions My [facility] Additional Instructions You were seen and evaluated today on an emergency basis only. This is not a substitute for, or an effort to provide, complete comprehensive medical care. It is not possible to recognize and treat all injuries or illnesses in a single emergency department visit. For this reason it is recommended that you followup with your primary care physician or neurologist this week for ongoing care and evaluation. DO NOT drive, drink alcohol, operate machinery, or perform dangerous activities today. You were given medications in the ER that can affect your ability to safely function or operate a vehicle. Rest today in a quiet, peaceful, dark environment and get a full 8-10 hrs of sleep tonight. Avoid loud noises, smoke/smoking, alcohol, bright lights, stress, or physical exertion today to minimize the chance the headache may return. Continue current medications. Ibuprofen(Motrin, Advil) may be used for fever or pain. Use 600mg every six hours as needed. Take with food. Avoid using more than 2400mg in a 24 hour period. Do not use 2400mg per day for more than three consecutive days without physician direction. Prolonged inappropriate use can lead to stomach upset or ulcers. (AND/OR) Acetaminophen(Tylenol) may be used for fever or pain. Use 1000mg every six hours as needed. Avoid using more than 4000mg in a 24 hour period. Return to the ER for passing out, worsening headache, vision problems, neck stiffness/pain, fevers, vomiting, worsening of your condition, or as needed.
[2016-12-18 00:38] VITALS: BP 148/99; PULSE 84; TEMP 36.7; O2SAT 99
== END 2016-12-18 00:38 | disposition home or self-care (01) ==
LOC: C.EDB 23:58 → C.EDA 12-18 00:38
DX: G43.909 Migraine, unspecified, not intractable, without status migrainosus (principal); D64.9 Anemia, unspecified; K21.9 Gastro-esophageal reflux disease without esophagitis; Z85.6 Personal history of leukemia; M41.9 Scoliosis, unspecified; Z87.440 Personal history of urinary (tract) infections; Z79.3 Long term (current) use of hormonal contraceptives; Z79.899 Other long term (current) drug therapy

== ENCOUNTER 2016-12-19 17:49 | Emergency (ER) | payer OTHER ==
[~2016-12-19] VITALS: Ht 165.1 cm; Wt 71.7 kg
[2016-12-19 17:52] VITALS: BP 144/103; PULSE 89; TEMP 36.9; O2SAT 99; Ht 165.1 cm; Wt 71.7 kg
[2016-12-19] MEDS ORDERED: PROMETHAZINE HCL INJ 25 MG/ML 1 ML VIAL IM STA (18:58)
[2016-12-19] MEDS ORDERED: HYDROmorphone INJ 2 MG/ML SYR/VIAL IM ONE (19:00)
[2016-12-19] MEDS ORDERED: HYDROmorphone INJ 1 MG/ML SYR ONE (19:17)
--- NOTE | 2016-12-22 15:11 | EMERGENCY ROOM VISIT NOTE ---
ED Visit Note First contact with patient: 17:55 CHIEF COMPLAINT: Migraine headache. HISTORY OF PRESENT ILLNESS: Ms. Henson is a 31 year-old white female who ambulates into the ED complaining of a migraine headache. She reports a gradual onset of a severe migraine headache that started approximately 10 hours ago. The pain is constant and it is slowly increasing in severity. This is not the worst headache of the life and is similar to previous migraines. Currently she describes the headache as a throbbing sensation/pain in the over the bilateral/occipital areas. She rates the pain a 8/10. The pain is radiating bilateral posterior parietal. She has not identified any aggravating or alleviating factors related to the pain. She reports she has taken ibuprofen without relief of her discomfort. There is been associated nausea without vomiting, mild light and hearing sensitivity. She denies recent head trauma, fever, chills, sweats, skin eruptions, skin color changes, upper respiratory tract symptoms, neck pain/stiffness, chest pain , shortness of breath, abdominal pain, extremity weakness/numbness/tingling, difficulty ambulating/coordinating body movements. REVIEW OF SYSTEMS: As noted above in History of Present Illness. All body systems were reviewed with this patient and found to be negative unless noted above otherwise. PAST MEDICAL HISTORY: Pneumonia, unspecified stomach stomach disorder, leukemia , anemia, chronic fatigue syndrome, scoliosis, appendectomy, femur fracture repair. CURRENT MEDICATIONS: ALLERGIES TO MEDICATIONS: Imitrex, penicillin, oxycodone. SOCIAL HISTORY: Patient is not employed; she lives by herself and feels safe in her home environment; she denies tobacco use; she admits to rare social alcohol use. PHYSICAL EXAM: Vital Signs: Date Time Temp Pulse Resp B/P (MAP) Pulse Ox O2 Delivery O2 Flow Rate FiO2 12/19/16 17:52 36.9 89 18 144/103 99 GENERAL: 31 year-old white female in moderate distress due to pain, afebrile and hemodynamically stable. NEUROLOGIC: Awake, alert and oriented to person place and time. Answering questions appropriately and following commands. Cranial nerves II-XII grossly intact. No focal neurologic deficits noted. SKIN: Warm, dry and pink. No rashes, lesions or soft tissue trauma noted. HEENT: Normocephalic, atraumatic. PERRLA. EOMI without nystagmus. Sclera anicteric. Funduscopic examination is unremarkable with a normal-appearing optic disc and no signs of increased intracranial pressure. External ears are nontender. Auditory canals are pink and patent. Tympanic membranes are pearly rasmussen with normal light reflex. Oral cavity is moist and pink. No signs of severe dental disease. Airway is patent. Uvula is midline and no abscesses are seen. No JVD. Trachea midline. BACK: No tenderness over the bony cervical, thoracic or lumbar spines. No tenderness throughout the paraspinous muscles. No meningismus. Full range of motion of the cervical spine. THORAX: Lungs clear to auscultation and equal bilaterally with no wheezing, crackles, rhonchi or stridor and equal chest wall movements. HEART: Regular rate and rhythm with no murmurs, rubs or gallops. ABDOMEN: Soft and nontender with bowel sounds present in all quadrants; no rigidity, rebound tenderness, organomegaly or guarding. MUSCULOSKELETAL: Full range of motion of all joints without any significant discomfort and the gait is normal. ED COURSE: Patient is assessed with history and physical examination. Patient was given 2 mg of Dilaudid and 25 mg of Phenergan IM for the pain and nausea. Patient was reassessed. Patient was educated about her condition and instructed on her treatment plan; she verbalized understanding and agreement with this plan. CLINICAL IMPRESSION: Acute migraine headache. 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 She is afebrile, well appearing, and hemodynamically stable. She has no signs of a sinus, dental , or ear infection and no evidence of meningismus. She is neurologically intact. I do not suspect a headache to be secondary to a subarachnoid hemorrhage, meningitis, encephalitis, or intracranial mass lesion. DISPOSITION: Patient was discharged to home in stable condition accompanied by female friends; prior to departure she was reassessed and subjectively reported she was feeling better and rated her discomfort 2/10 DISCHARGE INSTRUCTIONS: Rest at home, in a quiet darkened room and allow the medication to work for the pain. Continue to follow up current treatment plan prescribed by your physician for your migraine headaches. See your own doctor in follow-up this week for continued care and treatment. Return to the ED as needed for worsening/uncontrolled pain, any abnormal neurological symptoms, fevers or any new/concerning symptoms or in accordance with her pain management plan.
== END 2016-12-19 19:55 | disposition home or self-care (01) ==
LOC: C.EDB 17:50 → C.EDD 19:55
DX: G43.909 Migraine, unspecified, not intractable, without status migrainosus (principal); K31.9 Disease of stomach and duodenum, unspecified; Z85.6 Personal history of leukemia; D64.9 Anemia, unspecified; M41.9 Scoliosis, unspecified; Z87.01 Personal history of pneumonia (recurrent); R53.82 Chronic fatigue, unspecified

== ENCOUNTER 2017-01-17 15:42 | Emergency (ER) | payer OTHER ==
[~2017-01-17] VITALS: Ht 165.1 cm; Wt 75.1 kg
[2017-01-17 15:44] VITALS: TEMP 37.2; Ht 165.1 cm; Wt 75.1 kg
[2017-01-17] MEDS ORDERED: PROMETHAZINE HCL INJ 25 MG/ML 1 ML VIAL IM STA (16:07)
[2017-01-17] MEDS ORDERED: HYDROmorphone INJ 2 MG/ML SYR/VIAL IM STA (16:07)
[2017-01-17 16:20] VITALS: BP 154/118; PULSE 84; O2SAT 97
--- NOTE | 2017-01-17 17:37 | EMERGENCY ROOM VISIT NOTE ---
ED Visit Note First contact with patient: 15:48 CHIEF COMPLAINT: Migraine headache HISTORY OF PRESENT ILLNESS: This 31-year-old female patient presented to the emergency department with a gradual onset of a severe generalized headache that started approximately 4 hours prior to arrival. The patient states the migraine is similar to their typical migraines. There has been associated photophobia, phonophobia, nausea and vomiting. The patient denies fever or chills recently, and there is no weakness or numbness of the extremities. There is no difficulty with speech or vision. No trauma to the head and no neck pain. The pain is severe, constant, and it is slowly increasing in severity. The patient rates the pain as dull and 7/10. The patient has taken nothing [id number]. This is not the worst headache of the life and is similar to previous migraines. Previous imaging studies of the brain have been normal. REVIEW OF SYSTEMS: A review of systems was performed with positives and pertinent negatives listed in the history of present illness. All other systems were reviewed and are negative. ALLERGIES: See EMR MEDICATIONS: See EMR PMH: Chronic migraines SOCIAL HISTORY: [place] PHYSICAL EXAM: Vital Signs: Reviewed Nurse's notes, vital signs stable. GENERAL: White female, who appears in pain, but non toxic in appearance and in no acute distress. MENTAL STATUS: Alert, oriented, and coherent. HEENT: Normocephalic. PERRLA. EOMI. Nares patent without nuchal rigidity. Tympanic membranes pearly rasmussen without erythema or effusion bilaterally. Mucous membranes moist. NECK: Supple, no nuchal rigidity, nontender, no lymphadenopathy. HEART: Regular rhythm and normal rate without murmurs, ectopy, gallops, or rubs. LUNGS: Clear to auscultation bilaterally without wheezes, rales or rhonchi. No dullness to percussion. No accessory muscle use. No retractions. SKIN: Normal. NEUROLOGICAL: Pupils are round, equal and react to light. The optic fundi are normal and the discs are flat. The patient moves all extremities well and the gait is normal. EMERGENCY DEPARTMENT COURSE: I examined the patient. The patient is on a 2 narcotic injection per month treatment plan for their migraines. The patient was given 2 mg IM Dilaudid and 25 mg IM Phenergan per their usual protocol. I did take time to explain to the patient that we are transitioning away from narcotics for migraine treatments. I did offer alternative treatment regimens, as well as offered services to help her moving forward. The patient evidently does follow with neurology, and believes that she has an appointment next month. I did strongly recommend that she keep this appointment. The differential diagnosis includes acute intracranial bleed, meningitis, encephalitis, mass or mass effect, sinusitis, infection, tumor, headache, temporal arteritis and carbon monoxide exposure, and migraine. The patient was discharged home in stable condition with a male fabric machine operator driving. Problem List Medical Problems: (1) Anemia Status: Chronic (2) Appendectomy Status: Resolved (3) Fatigue Status: Chronic (4) Gastroesophageal reflux disease Status: Chronic (5) Headache Status: Chronic (6) Leukemia, disease Status: Chronic (7) Migraine Status: Chronic (8) Migraine Unspecified W/O Intract Mgrn W/O Status Migrainosus Status: Chronic (9) Pneumonia Status: Resolved (10) Scoliosis of thoracic spine Status: Chronic (11) Unspecified Leukemia In Remission Status: Resolved (12) Urin Tract Infection Nos Status: Resolved Current/Historical Medications Scheduled Control Pills ( Control Pills), 1 TAB PO QPM Ferrous Sulfate (Kp Ferrous Sulfate), 325 MG PO QPM Omeprazole (Prilosec), 20 MG PO QPM Scheduled PRN Cyclobenzaprine Hcl (Flexeril), 10 MG PO TID PRN for SPASMS Hydrocodone/Acetaminophen 5MG/325MG ([place] 5MG/325MG), 1 TABLET PO Q6 PRN for Pain Ibuprofen (Advil), 200-600 MG PO Q4H PRN for Pain Allergies Coded Allergies: Penicillins (Verified Allergy, Unknown, "BREATHING PROBLEMS", 01/17/17) Oxycodone (Verified Adverse Reaction, Unknown, GI UPSET, 01/17/17) FROM OXYCODONE; NOT APAP Sumatriptan (Verified Adverse Reaction, Unknown, "MAKES HEADACHE WORSE", ) Vital Signs Date Time Temp Pulse Resp B/P (MAP) Pulse Ox O2 Delivery O2 Flow Rate FiO2 01/17/17 16:20 84 18 154/118 97 Room Air 01/17/17 15:44 37.2 79 20 148/105 96 Room Air Medications Administered Medications (Trade) Dose Ordered Sig/Merlin Route Start Time Stop Time Status Last Admin Dose Admin Hydromorphone HCl (Dilaudid Inj) 2 mg NOW STAT IM 01/17/17 16:07 01/17/17 16:08 DC 01/17/17 16:16 2 MG Promethazine HCl (Phenergan Inj) 25 mg NOW STAT IM 01/17/17 16:07 01/17/17 16:08 DC 01/17/17 16:15 25 MG Departure Information Impression Primary Impression: Migraine Dispostion Home / Self-Care Condition GOOD Referrals Anna Montoya CRNP (PCP) Forms HOME CARE DOCUMENTATION FORM, IMPORTANT VISIT INFORMATION Patient Instructions My [facility] Additional Instructions You were seen and evaluated today on an emergency basis only. This is not a substitute for, or an effort to provide, complete comprehensive medical care. It is not possible to recognize and treat all injuries or illnesses in a single emergency department visit. For this reason it is recommended that you followup with your primary care physician or neurologist this week for ongoing care and evaluation. DO NOT drive, drink alcohol, operate machinery, or perform dangerous activities today. You were given medications in the ER that can affect your ability to safely function or operate a vehicle. Rest today in a quiet, peaceful, dark environment and get a full 8-10 hrs of sleep tonight. Avoid loud noises, smoke/smoking, alcohol, bright lights, stress, or physical exertion today to minimize the chance the headache may return. Continue current medications. Ibuprofen(Motrin, Advil) may be used for fever or pain. Use 600mg every six hours as needed. Take with food. Avoid using more than 2400mg in a 24 hour period. Do not use 2400mg per day for more than three consecutive days without physician direction. Prolonged inappropriate use can lead to stomach upset or ulcers. (AND/OR) Acetaminophen(Tylenol) may be used for fever or pain. Use 1000mg every six hours as needed. Avoid using more than 4000mg in a 24 hour period. Return to the ER for passing out, worsening headache, vision problems, neck stiffness/pain, fevers, vomiting, worsening of your condition, or as needed.
== END 2017-01-17 16:20 | disposition home or self-care (01) ==
LOC: C.EDB 15:43 → C.EDD 16:20
DX: G43.909 Migraine, unspecified, not intractable, without status migrainosus (principal); D64.9 Anemia, unspecified; R53.82 Chronic fatigue, unspecified; K21.9 Gastro-esophageal reflux disease without esophagitis; Z87.01 Personal history of pneumonia (recurrent); C95.91 Leukemia, unspecified, in remission; Z87.440 Personal history of urinary (tract) infections; Z79.3 Long term (current) use of hormonal contraceptives; Z79.899 Other long term (current) drug therapy

== ENCOUNTER 2017-01-19 18:06 | Emergency (ER) | payer OTHER ==
[~2017-01-19] VITALS: Ht 165.1 cm; Wt 73.9 kg
[2017-01-19 18:16] VITALS: TEMP 36.7; Ht 165.1 cm; Wt 73.9 kg
[2017-01-19] MEDS ORDERED: HYDROmorphone INJ 2 MG/ML SYR/VIAL IM STA (18:37)
[2017-01-19] MEDS ORDERED: PROMETHAZINE HCL INJ 25 MG/ML 1 ML VIAL IM STA (18:37)
--- NOTE | 2017-01-19 18:40 | EMERGENCY ROOM VISIT NOTE ---
ED Visit Note First contact with patient: 18:22 CHIEF COMPLAINT: Migraine headache HISTORY OF PRESENT ILLNESS: This 31-year-old female patient presented to the emergency department via private vehicle accompanied by male with a gradual onset of a severe generalized headache that started today around 9:30 AM. The patient states the migraine is similar to their typical migraines. There has been associated phonophobia, as well as nausea. The patient denies fever or chills recently, and there is no weakness or numbness of the extremities. There is no difficulty with speech or vision. No trauma to the head and no neck pain. The pain is severe, constant, and it is slowly increasing in severity. The patient rates the pain as severe and 8.5/10. This is not the worst headache of the life and is similar to previous migraines. Previous imaging studies of the brain have been normal. REVIEW OF SYSTEMS: A review of systems was performed with positives and pertinent negatives listed in the history of present illness. All other systems were reviewed and are negative. ALLERGIES: As noted MEDICATIONS: As noted below PMH: Migraines SOCIAL HISTORY: Lives locally PHYSICAL EXAM: Vital Signs: Reviewed Nurse's notes, vital signs stable. GENERAL : 31 year old female appear her stated age, who appears in pain, but non toxic in appearance and in no acute distress. MENTAL STATUS: Alert, oriented, and coherent. HEENT: Normocephalic. PERRLA. EOMI. Nares patent without nuchal rigidity. Tympanic membranes pearly rasmussen without erythema or effusion bilaterally. Mucous membranes moist. NECK: Supple, no nuchal rigidity, nontender, no lymphadenopathy. HEART: Regular rhythm and normal rate without murmurs, ectopy, gallops, or rubs. LUNGS: Clear to auscultation bilaterally without wheezes, rales or rhonchi. No accessory muscle use. No retractions. SKIN: Normal. NEUROLOGICAL: Pupils are round, equal and react to light. The optic fundi are normal and the discs are flat. The patient moves all extremities well and the gait is normal. EMERGENCY DEPARTMENT COURSE: I examined the patient. The patient is on a 2 narcotic injection per month treatment plan for their migraines. The patient was given 2 mg of Dilaudid, and 5 mg of Phenergan intramuscularly per the usual protocol. The differential diagnosis includes acute intracranial bleed, meningitis, encephalitis, mass or mass effect, sinusitis, infection, tumor, headache, temporal arteritis and carbon monoxide exposure, and migraine. The patient was discharged home in stable condition with Male driving. Patient was informed that at this time the hospital is changing its protocol for migraine management, and she verbally confirmed that she understood that in the near future we no longer will be giving narcotics for migraines. She was thoroughly invited back here for any new/concerning symptoms. In the evaluation and treatment of this patient, the following differential diagnoses were considered: Migraine Headache, Intracranial Hemorrhage, Subdural Hematoma, Subarachnoid Hemorrhage, Cerebral Aneurysm, Temporal/Giant Cell Arteritis, Tension Headache, Meningitis, Encephalitis, or Hydrocephalus. Problem List Medical Problems: (1) Anemia Status: Chronic (2) Appendectomy Status: Resolved (3) Fatigue Status: Chronic (4) Gastroesophageal reflux disease Status: Chronic (5) Headache Status: Chronic (6) Leukemia, disease Status: Chronic (7) Migraine Status: Chronic (8) Migraine Unspecified W/O Intract Mgrn W/O Status Migrainosus Status: Chronic (9) Pneumonia Status: Resolved (10) Scoliosis of thoracic spine Status: Chronic (11) Unspecified Leukemia In Remission Status: Resolved (12) Urin Tract Infection Nos Status: Resolved Current/Historical Medications Scheduled Control Pills ( Control Pills), 1 TAB PO QPM Ferrous Sulfate (Kp Ferrous Sulfate), 325 MG PO QPM Omeprazole (Prilosec), 20 MG PO QPM Scheduled PRN Cyclobenzaprine Hcl (Flexeril), 10 MG PO TID PRN for SPASMS Hydrocodone/Acetaminophen 5MG/325MG ([place] 5MG/325MG), 1 TABLET PO Q6 PRN for Pain Ibuprofen (Advil), 200-600 MG PO Q4H PRN for Pain Allergies Coded Allergies: Penicillins (Verified Allergy, Unknown, "BREATHING PROBLEMS", 01/19/17) Oxycodone (Verified Adverse Reaction, Unknown, GI UPSET, 01/19/17) FROM OXYCODONE; NOT APAP Sumatriptan (Verified Adverse Reaction, Unknown, "MAKES HEADACHE WORSE", ) Vital Signs Date Time Temp Pulse Resp B/P (MAP) Pulse Ox O2 Delivery O2 Flow Rate FiO2 01/19/17 18:16 36.7 100 18 168/118 95 Room Air Medications Administered Medications (Trade) Dose Ordered Sig/Merlin Route Start Time Stop Time Status Last Admin Dose Admin Hydromorphone HCl (Dilaudid Inj) 2 mg NOW STAT IM 01/19/17 18:37 01/19/17 18:39 DC 01/19/17 18:47 2 MG Promethazine HCl (Phenergan Inj) 25 mg NOW STAT IM 01/19/17 18:37 01/19/17 18:39 DC 01/19/17 18:46 25 MG Departure Information Impression Primary Impression: Headache Dispostion Home / Self-Care Condition GOOD Referrals Anna Montoya CRNP (PCP) Patient Instructions My [facility] Additional Instructions You have been treated in the Emergency Department for a Headache. You have received pain medicine in the emergency department which impairs your ability to operate a vehicle. It is illegal for you to drive after receiving these medicines. For pain control, you can use the following [id number] medicines: - Regular strength (325mg/tab) Tylenol (acetaminophen) 2 tabs every 4-6 hours as needed. Do not exceed 12 tablets in a 24 hour period. Avoid taking more than 3 grams (3000 mg) of Tylenol per day. This includes any other sources of acetaminophen you may take on a regular basis. - Regular strength (200 mg/tab) Advil (ibuprofen) 1-2 tabs every 4-6 hours as needed. Do not exceed a dose of 3200 mg per day. You should relax in a quiet, dark place for the rest of the day. Avoid any possible triggers including: cigarette smoke, caffeine, nicotine, chocolate, wine, beer, loud noises or music, or bright lights. You should schedule a follow-up appointment in 2-3 days with your Primary Care Provider or established Neurologist for further evaluation and treatment of your Headache. Return to the Emergency Department if your current symptoms worsen despite treatment course outlined above, or if you develop any of the following symptoms : intractable pain despite aforementioned treatment course, visual disturbances , loss of vision, unilateral weakness or facial drooping, slurring of speech, loss of coordination, or loss of consciousness. Please return to the emergency department with any new/concerning symptoms.
[2017-01-19 19:03] VITALS: BP 173/129; PULSE 90; O2SAT 96
== END 2017-01-19 19:04 | disposition home or self-care (01) ==
LOC: C.EDB 18:08 → C.EDD 19:04
DX: R51 Headache (principal); K21.9 Gastro-esophageal reflux disease without esophagitis; D64.9 Anemia, unspecified; Z85.6 Personal history of leukemia; Z87.440 Personal history of urinary (tract) infections; Z79.899 Other long term (current) drug therapy; Z98.890 Other specified postprocedural states; Z88.0 Allergy status to penicillin; Z88.5 Allergy status to narcotic agent; Z88.8 Allergy status to other drugs, medicaments and biological substances

== ENCOUNTER 2017-02-17 18:21 | Emergency (ER) | payer OTHER ==
[~2017-02-17] VITALS: Ht 165.1 cm; Wt 76.1 kg
[2017-02-17 18:25] VITALS: Ht 165.1 cm; Wt 76.1 kg
[2017-02-17] MEDS ORDERED: KETOROLAC TROMETHAMINE 60 MG/2 ML VIAL IM STA (18:48)
[2017-02-17] MEDS ORDERED: PROMETHAZINE HCL INJ 25 MG/ML 1 ML VIAL IM STA (18:48)
--- NOTE | 2017-02-17 19:02 | EMERGENCY ROOM VISIT NOTE ---
History Report prepared by Prudence: Jaden Burleson Under the Supervision of: Dr. Jerson Robledo D.O. First contact with patient: 18:27 Chief Complaint: HEADACHE Stated Complaint: SEVERE MIGRAINE HEADACHE History of Present Illness The patient is a 31 year old female who presents to the Emergency Room with complaints of a constant migraine starting around 1300 today. She currently rates her discomfort as a 9/10 in severity. The patient states that the headache is located in the back of the head and it wraps around the side of her head. The patient additionally states that she is nauseous, and she is having photophobia. She denies any blurred vision or vomiting. She states that she usually takes Vicodin for her pain, and she is getting more on the 11th. She states that all of this pain is from her scoliosis. Source of History: patient Onset: 1300 Position: head Quality: other (migraine) Timing: constant Modifying Factors (Worsening): other (light) Associated Symptoms: No vomiting Review of Systems See HPI for pertinent positives & negatives. A total of 10 systems reviewed and were otherwise negative. Past Medical & Surgical Medical Problems: (1) Anemia (2) Appendectomy (3) Fatigue (4) Gastroesophageal reflux disease (5) Headache (6) Leukemia, disease (7) Migraine (8) Migraine Unspecified W/O Intract Mgrn W/O Status Migrainosus (9) Pneumonia (10) Scoliosis of thoracic spine (11) Unspecified Leukemia In Remission (12) Urin Tract Infection Nos Family History Cancer [place] Gallbladder disease Heart disease Hypertension Kidney disease Kidney stones Social History Smoking Status: Never Smoker Alcohol Use: none Drug Use: none Marital Status: Housing Status: lives with family Occupation Status: unemployed Current/Historical Medications Scheduled Control Pills ( Control Pills), 1 TAB PO QPM Ferrous Sulfate (Kp Ferrous Sulfate), 325 MG PO QPM Omeprazole (Prilosec), 20 MG PO QPM Scheduled PRN Cyclobenzaprine Hcl (Flexeril), 10 MG PO TID PRN for SPASMS Hydrocodone/Acetaminophen 5MG/325MG ([place] 5MG/325MG), 1 TABLET PO Q6 PRN for Pain Ibuprofen (Advil), 200-600 MG PO Q4H PRN for Pain Allergies Coded Allergies: Penicillins (Verified Allergy, Unknown, "BREATHING PROBLEMS", 01/19/17) Oxycodone (Verified Adverse Reaction, Unknown, GI UPSET, 01/19/17) FROM OXYCODONE; NOT APAP Sumatriptan (Verified Adverse Reaction, Unknown, "MAKES HEADACHE WORSE", ) Physical Exam Vital Signs Date Time Temp Pulse Resp B/P (MAP) Pulse Ox O2 Delivery O2 Flow Rate FiO2 02/17/17 19:22 36.8 88 18 112/72 99 02/17/17 19:21 88 18 112/72 99 Room Air 02/17/17 18:25 36.8 92 18 152/114 99 Room Air Physical Exam CONSTITUTIONAL/VITAL SIGNS: Reviewed / noted above. GENERAL: Non-toxic in appearance. INTEGUMENTARY: Warm, dry, and [place]. HEAD: Normocephalic. EYES: without scleral icterus or trauma. ENT/OROPHARYNX: clear and moist. LYMPHADENOPATHY/NECK: Is supple without lymphadenopathy or meningismus. RESPIRATORY: Lungs clear and equal. CARDIOVASCULAR: Regular rate and rhythm. GI/ABDOMEN: Soft and nontender. No organomegaly or pulsatile mass. No rebound or guarding. Normal bowel sounds. EXTREMITIES: Warm and well perfused. BACK: No CVA tenderness. NEUROLOGICAL: Intact without focal deficits. PSYCHIATRIC: normal affect. MUSCULOSKELETAL: Normally developed with good muscle tone. Medical Decision & Procedures Medications Administered Medications (Trade) Dose Ordered Sig/Merlin Route Start Time Stop Time Status Last Admin Dose Admin Ketorolac Tromethamine (Toradol Inj) 60 mg NOW STAT IM 02/17/17 18:48 02/17/17 18:49 DC 02/17/17 19:03 60 MG Promethazine HCl (Phenergan Inj) 25 mg NOW STAT IM 02/17/17 18:48 02/17/17 18:49 DC 02/17/17 19:04 25 MG ED Course 1842: Previous medical records were reviewed. The patient was evaluated in room A4. A complete history and physical examination was performed. 1848: Toradol Inj 60mg IM, Phenergan Inj 25mg IM. The patient will be discharged home Medical Decision Differential includes: Acute intracranial bleed, trauma, meningitis, encephalitis, increased intracranial pressure, mass or mass effect, facial or dental infection, temporal arteritis, CVA, TIA, acute hypertensive emergency, sinusitis, carbon monoxide exposure. This is a 31-year-old female who presents to the ED with a chief complaint of a typical migraine headache. It is on the left side of the occipital region and radiates towards the front. It started about 6 hours ago. She did not try any home remedies. She reported some nausea but no focal neurologic deficits, weakness or fevers. Denies recent trauma. Her physical exam was normal. She was treated with Toradol 60 mg IM and Phenergan 25 mg IM. She is felt to be stable for discharge and outpatient follow-up. She was advised she would no longer receive narcotics for chronic issues. Medication Reconcilliation Current Medication List: was personally reviewed by me Blood Pressure Screening Patient's blood pressure: Elevated blood pressure Blood pressure disposition: Elevated BP felt to be situational Impression Primary Impression: Headache Scribe Attestation The scribe's documentation has been prepared under my direction and personally reviewed by me in its entirety. I confirm that the note above accurately reflects all work, treatment, procedures, and medical decision making performed by me. Departure Information Dispostion Home / Self-Care Referrals Anna Montoya CRNP (PCP) Forms HOME CARE DOCUMENTATION FORM, IMPORTANT VISIT INFORMATION Patient Instructions My [facility] Additional Instructions Follow-up with your doctors.
[2017-02-17 19:22] VITALS: BP 112/72; PULSE 88; TEMP 36.8; O2SAT 99
== END 2017-02-17 19:23 | disposition home or self-care (01) ==
LOC: C.EDB 18:22 → C.EDA 19:23
DX: R51 Headache (principal); M41.9 Scoliosis, unspecified; K21.9 Gastro-esophageal reflux disease without esophagitis; D64.9 Anemia, unspecified; Z85.6 Personal history of leukemia; Z87.440 Personal history of urinary (tract) infections; Z80.9 Family history of malignant neoplasm, unspecified; Z83.79 Family history of other diseases of the digestive system; Z82.49 Family history of ischemic heart disease and other diseases of the circulatory system; Z84.1 Family history of disorders of kidney and ureter; Z79.3 Long term (current) use of hormonal contraceptives; Z79.899 Other long term (current) drug therapy

== ENCOUNTER 2017-03-18 18:56 | Emergency (ER) | payer OTHER ==
[~2017-03-18] VITALS: Ht 165.1 cm; Wt 77.5 kg
[2017-03-18 18:59] VITALS: TEMP 37.1; Ht 165.1 cm; Wt 77.5 kg
[2017-03-18] MEDS ORDERED: ONDANSETRON INJ 2 MG/ML 2 ML VIAL IV STA (19:23)
[2017-03-18] MEDS ORDERED: SODIUM CHLORIDE 0.9% 1000ML 1,000 ML IV STA (19:23)
[2017-03-18] MEDS ORDERED: ACETAMINOPHEN 500 MG TAB PO STA (19:23)
[2017-03-18] MEDS ORDERED: KETOROLAC TROMETHAMINE 30 MG/ML VIAL IV STA (19:23)
--- NOTE | 2017-03-18 19:27 | EMERGENCY ROOM VISIT NOTE ---
History Report prepared by Prudence: Josefina Medellin Under the Supervision of: Dr. Liu Marina M.D. 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 Positive dysuria, right groin pain, right abdominal pain, and right leg pain. Negative hematuria, change in bowel movement. She denies any recent trauma or injury. She denies any alcohol, tobacco, or drug use. 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 Review of Systems See HPI for pertinent positives and negatives. A total of ten systems were reviewed and were otherwise negative. Past Medical & Surgical Medical Problems: (1) Anemia (2) Appendectomy (3) Fatigue (4) Gastroesophageal reflux disease (5) Headache (6) Leukemia, disease (7) Migraine (8) Migraine Unspecified W/O Intract Mgrn W/O Status Migrainosus (9) Pneumonia (10) Scoliosis of thoracic spine (11) Unspecified Leukemia In Remission (12) Urin Tract Infection Nos Family History Cancer [place] Gallbladder disease Heart disease Hypertension Kidney disease Kidney stones Social History Smoking Status: Never Smoker Alcohol Use: none Drug Use: none Marital Status: Housing Status: lives with family Occupation Status: unemployed Current/Historical Medications Scheduled Control Pills ( Control Pills), 1 TAB PO QPM Ferrous Sulfate (Kp Ferrous Sulfate), 325 MG PO QPM Omeprazole (Prilosec), 20 MG PO QPM Tamsulosin Hcl (Flomax), 0.4 MG PO DAILY Scheduled PRN Cyclobenzaprine Hcl (Flexeril), 10 MG PO TID PRN for SPASMS Hydrocodone/Acetaminophen 5MG/325MG ([place] 5MG/325MG), 1 TABLET PO Q6 PRN for Pain Ibuprofen (Advil), 200-600 MG PO Q4H PRN for Pain Tramadol (Ultram), 50 MG PO Q8H PRN for Pain Allergies Coded Allergies: Penicillins (Verified Allergy, Unknown, "BREATHING PROBLEMS", 01/19/17) Oxycodone (Verified Adverse Reaction, Unknown, GI UPSET, 01/19/17) FROM OXYCODONE; NOT APAP Sumatriptan (Verified Adverse Reaction, Unknown, "MAKES HEADACHE WORSE", ) Physical Exam Vital Signs Date Time Temp Pulse Resp B/P (MAP) Pulse Ox O2 Delivery O2 Flow Rate FiO2 03/18/17 20:50 96 20 150/70 99 Room Air 03/18/17 18:59 37.1 96 20 150/170 99 Room Air Physical Exam GENERAL: Awake, alert, well-appearing, NAD HENT: Normocephalic, atraumatic. EYES: Normal conjunctiva. Sclera non-icteric. NECK: Supple. No nuchal rigidity. FROM. RESPIRATORY: CTAB, no rhonchi, wheezing, crackles CARDIAC: RRR, no MRG ABDOMEN: Soft, mild right sided flank pain and abdominal pain, negative Crews's , BS+ MSK: No chest wall TTP, no LE edema, right CVA TTP, no obvious signs of trauma. NEURO: GCS 15, CN 2-12 intact, moves all 4s on command SKIN: No rash or jaundice noted. Medical Decision & Procedures ER Provider Diagnostic Interpretation: Radiology results as stated below per my review and radiologist interpretation: (RENAL)RETROPERITON COMP CLINICAL HISTORY: 31 years-old Female presenting with FLANK PAIN. TECHNIQUE: Real-time grayscale and limited color Doppler ultrasound imaging of the kidneys and bladder was performed. COMPARISON: 2011. FINDINGS: Right kidney: Normal echogenicity. Right kidney measures 9.8 cm. No hydronephrosis. No convincing evidence of calculus or mass. Normal perfusion. Left kidney: Normal echogenicity. Left kidney measures 10.3 cm. No hydronephrosis. No convincing evidence of calculus or mass. Normal perfusion. Bladder: Incompletely distended. Ureteral jets not visualized. Other: None. IMPRESSION: 1. Normal renal ultrasound. No obstruction. Electronically signed by: Meño Lopes M.D. 03/18/2017 8:23 PM Dictated Date/Time: 03/18/2017 8:22 PM Laboratory Results 03/18/17 19:50 Red Blood Count 4.03, Mean Corpuscular Volume 90.8, Mean Corpuscular Hemoglobin 30.0, Mean Corpuscular Hemoglobin Concent 33.1, Mean Platelet Volume 10.2, Neutrophils (%) (Auto) 52.3, Lymphocytes (%) (Auto) 35.8, Monocytes (%) (Auto) 7.6, Eosinophils (%) (Auto) 3.1, Basophils (%) (Auto) 0.8, Neutrophils # (Auto) 4.45, Lymphocytes # (Auto) 3.05, Monocytes # (Auto) 0.65, Eosinophils # (Auto) 0.26, Basophils # (Auto) 0.07 03/18/17 19:50 Test 03/18/17 19:50 White Blood Count 8.51 K/uL (4.8-10.8) Red Blood Count 4.03 M/uL (4.2-5.4) Hemoglobin 12.1 g/dL (12.0-16.0) Hematocrit 36.6 % (37-47) Mean Corpuscular Volume 90.8 fL (80-100) Mean Corpuscular Hemoglobin 30.0 pg (25-34) Mean Corpuscular Hemoglobin Concent 33.1 g/dl (32-36) Platelet Count 374 K/uL (130-400) Mean Platelet Volume 10.2 fL (7.4-10.4) Neutrophils (%) (Auto) 52.3 % Lymphocytes (%) (Auto) 35.8 % Monocytes (%) (Auto) 7.6 % Eosinophils (%) (Auto) 3.1 % Basophils (%) (Auto) 0.8 % Neutrophils # (Auto) 4.45 K/uL (1.4-6.5) Lymphocytes # (Auto) 3.05 K/uL (1.2-3.4) Monocytes # (Auto) 0.65 K/uL (0.11-0.59) Eosinophils # (Auto) 0.26 K/uL (0-0.5) Basophils # (Auto) 0.07 K/uL (0-0.2) RDW Standard Deviation 46.1 fL (36.4-46.3) RDW Coefficient of Variation 13.8 % (11.5-14.5) Immature Granulocyte % (Auto) 0.4 % Immature Granulocyte # (Auto) 0.03 K/uL (0.00-0.02) Urine Color YELLOW Urine Appearance CLEAR (CLEAR) Urine pH 5.0 (4.5-7.5) Urine Specific [place] 1.025 (1.000-1.030) Urine Protein NEG (NEG) Urine Glucose (UA) NEG (NEG) Urine Ketones NEG (NEG) Urine Occult Blood 1+ (NEG) Urine Nitrite NEG (NEG) Urine Bilirubin NEG (NEG) Urine Urobilinogen NEG (NEG) Urine Leukocyte Esterase NEG (NEG) Urine WBC (Auto) 1-5 /hpf (0-5) Urine RBC (Auto) 5-10 /hpf (0-4) Urine Hyaline Casts (Auto) 1-5 /lpf (0-5) Urine Epithelial Cells (Auto) >30 /lpf (0-5) Urine Bacteria (Auto) NEG (NEG) Urine Mucus PRESENT (NONE PRSENT) Urine Test NEG (NEG) Anion Gap 6.0 mmol/L (3-11) Est Creatinine Clear Calc Drug Dose 108.0 ml/min Estimated GFR () 118.4 Estimated GFR (Non- 102.2 BUN/Creatinine Ratio 16.0 (10-20) Calcium Level 9.0 mg/dl (8.5-10.1) Laboratory results reviewed by me Medications Administered Medications (Trade) Dose Ordered Sig/Merlin Route Start Time Stop Time Status Last Admin Dose Admin Ondansetron HCl (Zofran Inj) 4 mg NOW STAT IV 03/18/17 19:23 03/18/17 19:25 DC 03/18/17 19:54 4 MG Sodium Chloride 1,000 ml @ 999 mls/hr Q1H1M STAT IV 03/18/17 19:23 03/18/17 20:23 DC 03/18/17 19:55 999 MLS/HR Ketorolac Tromethamine (Toradol Inj) 30 mg NOW STAT IV 03/18/17 19:23 03/18/17 19:25 DC 03/18/17 19:54 30 MG Acetaminophen (Tylenol Tab) 1,000 mg NOW STAT PO 03/18/17 19:23 03/18/17 19:25 DC 03/18/17 19:55 1,000 MG Tramadol HCl (Ultram Tab) 50 mg NOW STAT PO 03/18/17 20:50 03/18/17 20:51 DC 03/18/17 21:00 50 MG ED Course 191: The patient was evaluated in room C9. A complete history and physical exam was performed. 2045: I reevaluated the patient. I discussed results and discharge instructions : she verbalized understanding and agreement. The patient is ready for discharge. 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 Differential diagnosis: Etiologies such as renal colic, appendicitis, diverticulitis, mesenteric ischemia, aortic pathology, infections, inflammatory bowel disease, PUD, biliary pathology, UTI, as well as others were entertained. Patient was seen and evaluated at the bedside. Patient is a prior history of kidney stones and states this is similar to kidney stone pain. Patient denies any trauma does not take any blood thinning medications. Patient has no fevers chills. Patient states she had some mild pain with urination. Patient denies any other acute symptomatic please. Patient had CBC, BMP, UA, UPT, and renal ultrasound. Patient's CBC fairly unremarkable. BMP does not show any acute renal dysfunction. UA only has trace blood. It was negative for infection. Patient's ultrasound does not show any hydronephrosis or any sort of blockage or stone. Given the patient's prior history were continued to treat. Patient has no other changes. Less likely be something like ovarian torsion as the patient has had prior history and symptoms before these feel exactly the same. Patient was given medications and was only feeling mildly improved. Patient was given additional medications in addition to Flomax for home. Patient was afebrile vital signs stable well-appearing. Patient was told to follow up with her urologist as needed. Patient was also told to follow with her PCP. Patient was given strict follow-up, discharge, returned and return precautions. Patient agreed with plan of care patient was discharged home. Medication Reconcilliation Current Medication List: was personally reviewed by me Blood Pressure Screening Patient's blood pressure: Elevated blood pressure Blood pressure disposition: Elevated BP felt to be situational Impression Primary Impression: Right flank pain Scribe Attestation The scribe's documentation has been prepared under my direction and personally reviewed by me in its entirety. I confirm that the note above accurately reflects all work, treatment, procedures, and medical decision making performed by me. Departure Information Dispostion Home / Self-Care Prescriptions Tamsulosin Hcl (FLOMAX) 0.4 Mg Cap 0.4 MG PO DAILY for 30 Days, #30 CAP Prov: Liu Marina M.D. 03/18/17 Tramadol (Ultram) 50 Mg Tab 50 MG PO Q8H Y for Pain, #12 TAB Prov: Liu Marina M.D. 03/18/17 Referrals Anna Montoya CRNP (PCP) Patient Instructions ED Flank Pain Uncertain Cause, My [facility] [address] Additional Instructions Please return to the emergency department if you have worsening or recurrent symptoms not amenable to at-home treatment. Please call for a follow-up appointment with her primary care physician. Please take your medications as prescribed. If you have other concerns and/or complaints please feel free to also call your primary care physician's office or return the ED for further evaluation, management, and treatment. You may take 600 mg Ibuprofen every 6 hours as needed for pain with food for no more than 2 consecutive days. You may take tylenol 1000mg every 6 hours as needed for pain. You may take motrin and tylenol separately or at the same time. Take tramadol for breakthrough pain. You have been examined and treated today on an emergency basis only. This is not a substitute for, or an effort to provide, complete comprehensive medical care. It is impossible to recognize and treat all injuries or illnesses in a single emergency department visit. It is therefore important that you follow up closely with [facility]. Call as soon as possible for an appointment. Thank you for your time and consideration. I look forward to speaking with you again soon. Please don't hesitate to call us if you have any questions.
[2017-03-18 20:14] LABS: URINE APPEARANCE CLEAR (CLEAR); URINE BILIRUBIN NEG (NEG); URINE COLOR YELLOW; URINE EPITHELIAL CELL AUTO >30 /lpf (0-5); URINE NITRITE NEG (NEG); URINE SPECIFIC GRAVITY 1.025 (1.000-1.030); UROBILINOGEN NEG (NEG)
[2017-03-18 20:15] LABS: MANUAL MICROSCOPIC REQUIRED? NO; REVIEW REQ? YES
[2017-03-18 20:22] LABS: BASO % 0.8 %; BASO ABS # 0.07 K/uL (0-0.2); COMPLETE YES; EOS % 3.1 %; HEMATOCRIT 36.6 % (37-47); IG% 0.4 %; LYMPH % 35.8 %; LYMPH ABS # 3.05 K/uL (1.2-3.4); MEAN CELL VOLUME 90.8 fL (80-100); MEAN CORPUSCULAR HGB CONC 33.1 g/dl (32-36); MEAN PLATELET VOLUME 10.2 fL (7.4-10.4); MONO % 7.6 %; NEUT % 52.3 %; PLATELET COUNT 374 K/uL (130-400); RED BLOOD COUNT 4.03 M/uL (4.2-5.4); WHITE BLOOD COUNT 8.51 K/uL (4.8-10.8)
[2017-03-18 20:25] LABS: CREATININE 0.77 mg/dl (0.60-1.20)
--- NOTE | 2017-03-18 20:25 | DIAGNOSTIC IMAGING REPORT ---
(RENAL)RETROPERITON COMP CLINICAL HISTORY: 31 years-old Female presenting with FLANK PAIN. TECHNIQUE: Real-time grayscale and limited color Doppler ultrasound imaging of the kidneys and bladder was performed. COMPARISON: 2011. FINDINGS: Right kidney: Normal echogenicity. Right kidney measures 9.8 cm. No hydronephrosis. No convincing evidence of calculus or mass. Normal perfusion. Left kidney: Normal echogenicity. Left kidney measures 10.3 cm. No hydronephrosis. No convincing evidence of calculus or mass. Normal perfusion. Bladder: Incompletely distended. Ureteral jets not visualized. Other: None. IMPRESSION: 1. Normal renal ultrasound. No obstruction. Electronically signed by: Meño Lopes M.D. 03/18/2017 8:23 PM Dictated Date/Time: 03/18/2017 8:22 PM
[2017-03-18] MEDS ORDERED: TRAM-10 PO (20:42)
[2017-03-18 20:50] VITALS: BP 150/70; PULSE 96; O2SAT 99
[2017-03-18 20:50] LABS: URINE MUCUS PRESENT (NONE PRSENT)
[2017-03-18] MEDS ORDERED: TRAMADOL HCL 50 MG TAB PO STA (20:50)
[2017-03-18] MEDS ORDERED: TAMS0.4C38 PO (20:52)
== END 2017-03-18 20:50 | disposition home or self-care (01) ==
LOC: C.EDB 18:57 → C.EDC 20:50
DX: R10.11 Right upper quadrant pain (principal); R10.31 Right lower quadrant pain; D64.9 Anemia, unspecified; K21.9 Gastro-esophageal reflux disease without esophagitis; G43.909 Migraine, unspecified, not intractable, without status migrainosus; M41.9 Scoliosis, unspecified; Z87.442 Personal history of urinary calculi; Z85.6 Personal history of leukemia; Z79.3 Long term (current) use of hormonal contraceptives; Z82.49 Family history of ischemic heart disease and other diseases of the circulatory system; Z84.1 Family history of disorders of kidney and ureter

== ENCOUNTER 2022-10-03 07:40 | Inpatient (IN) ==
[2022-10-03] MEDS ORDERED: OXYTOCIN 30 UNITS/500 ML BAG IV PRN ×3 (08:32→16:50)
[2022-10-03] MEDS ORDERED: LIDOCAINE 1% LOCAL 20 ML VIAL INFIL PRN (08:32)
[2022-10-03 08:50] LABS: Hemoglobin 10.7 g/dl (12.0-16.0); Mean Corpuscular Hgb Conc 33.4 g/dL (32.0-36.0); Mean Corpuscular Volume 89.6 fL (80.0-100.0); Mean Platelet Volume 10.1 fL (9.4-12.4); Platelet Count 284 K/uL (130-400); RDW Coefficient of Variation 14.7 % (11.5-14.5); Red Blood Count 3.57 M/uL (4.20-5.40); White Blood Count 10.25 K/ul (4.8-10.8)
[2022-10-03] MEDS ORDERED: VANCOMYCIN CONSULT ACTIVE PRN (09:01)
--- NOTE | 2022-10-03 09:08 | History & Physical Report ---
Date of Service October 03, 2022 Assessment & Plan (1) Chronic hypertension during , antepartum: Plan: 37-year-old -0-0-2 at 39 weeks and 1 day gestation by second trimester ultrasound, history of chronic hypertension on labetalol, Vital signs stable afebrile, heart rate reassuring, GBS unknown, penicillin allergy Cervix favorable, Plan to admit, labs, vancomycin, oxytocin per protocol, anticipate , All questions were answered. (2) Imprisonment and other incarceration: (3) No care in current : (4) Drug abuse during : Admission and Anticipated Discharge Date Admission Date: October 03, 2022 History of Present Illness Primary Care Provider: David Fong Patient is a 37-year-old -0-0-2 at 39 weeks and 1 day gestation who was scheduled for induction of labor at term for history of chronic hypertension, on labetalol, Patient feels well no complaints. She feels irregular contractions, not painful yet. She denies leakage of fluid or vaginal bleeding. She reports good movements. Her has been complicated by, 1. AMA, 2. No care until 26 weeks, imprisoned. Dated by 26 weeks ultrasound 3. GBS unknown, 4. history of herpes, on Valtrex since 36 weeks, 5. Cervical dysplasia, [place]-2 per cervical biopsy on September 15, 6. history of methamphetamine use, 7. Chronic hypertension, on labetalol, 8. Hypothyroidism Allergies Allergy/AdvReac Type Severity Reaction Status Date / Time Penicillins Allergy Severe "BREATHING Verified 07/22/22 17:33 PROBLEMS" oxycodone AdvReac Intermediate GI UPSET Verified 07/22/22 17:33 sumatriptan AdvReac Unknown "MAKES Verified 07/22/22 17:33 HEADACHE WORSE" Home Medications Medication Instructions Recorded Confirmed Type acetaminophen 500 mg tablet 1,000 mg PO Q6H PRN Pain 03/12/21 07/22/22 History labetalol 100 mg tablet 100 mg PO BID 03/12/21 07/22/22 History ferrous sulfate 325 mg (65 mg 325 mg PO DAILY #60 tabs 07/02/22 07/22/22 Rx iron) tablet (FeroSul) vit no.95-ferrous 1 tab PO DAILY #60 tabs 07/02/22 07/22/22 Rx fumarate 28 mg-folic acid 800 mcg tablet () levothyroxine 88 mcg tablet 88 mcg PO DAILY 07/22/22 07/22/22 History ondansetron HCl 4 mg tablet 0 mg PO DIRECTED PRN 07/22/22 07/22/22 History NAUSEA/VOMITING Patient History Medical History Anemia (07/25/12) Migraine Preeclampsia Unspecified leukemia 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) Social History Smoking Status: Never smoker Tobacco Type: Cigarettes Second Hand Exposure: Yes; Hx Alcohol Use: No Hx Substance Use: Yes Last Used Substance: Days (ago) Last Used Substance Other:: 06/20/2022 Preferred Language: Argentine marital status: Single Feels Safe at Home: Yes OB History Full-term 's x2 [employer] History She was tested for herpes and it was positive denies any history of genital herpetic lesions on her episodes, Current cervical dysplasia, [place]-2 Review of Systems as per Subjective / HPI Physical Exam Constitutional: WD/WN, vitals as above well developed, well nourished and comfortable Gastrointestinal (Abdomen): normal bowel sounds, soft, nontender, no hepatosplenomegaly Genitourinary: normal external appearance OB Exam Abdomen: + vertex Manual OB Exam: + cervical dilation 2 cm, + cervical effacement 30% and + station -2 OB Exam Monitor Tracing: + external uterine monitor used and + category I Results & Data Vital Signs (Past 12 Hours) Vital Signs Pulse BP 10/03/22 07:57 95 H 133/86
[2022-10-03] MEDS: LACTATED RINGER'S 1,000 ML IV PRN ×2 (09:24→16:03)
[2022-10-03] MEDS ORDERED: VANCOMYCIN HCL 1,500 MG in SODIUM CHLORIDE 0.9% 500 ML IV PRN (09:30)
[2022-10-03] MEDS: LABETALOL HCL 100 MG TAB PO SCH ×2 (09:33→17:27)
--- NOTE | 2022-10-03 13:59 | Obstetrical Progress Note ---
Date of Service October 03, 2022 Assessment & Plan Admission and Anticipated Discharge Date Admission Date: October 03, 2022 Subjective Patient is reevaluated. SROM'ed, Vancomycin is infusing Contractions are getting more painful but does not want epidural VE; 3-4 cm/ 50%, -2, more central and head lower FHR categ I Continue to monitor closely Results & Data Vital Signs (Past 12 Hours) Vital Signs Temp Pulse Resp BP 10/03/22 10:02 36.7 C 20 10/03/22 12:56 67 10/03/22 12:56 148/82 H 10/03/22 12:37 75 10/03/22 12:37 162/91 H 10/03/22 07:57 95 H 133/86
[2022-10-03 16:00] LABS: Amphetamines+Metham, Urine Neg (Neg); Barbiturates, Urine Neg (Neg); Benzodiazepine, Urine Neg (Neg); Cocaine, Urine Neg (Neg); MDMA (Ecstacy), Urine Neg (Neg); Methadone, Urine Neg (Neg); Opiate, Urine Neg (Neg); Phencyclidine, Urine Neg (Neg)
[2022-10-03] MEDS ORDERED: BENZOCAINE 20% AER SPR 82.5 GM CAN EXT PRN (16:50)
[2022-10-03] MEDS ORDERED: HYDROCORTISONE ACETATE 25 MG SUPP PR PRN (16:50)
[2022-10-03] MEDS ORDERED: MEASLES, MUMPS & RUBELLA VIRUS VIAL SQ ONE (16:50)
[2022-10-03] MEDS ORDERED: bisacodyL 10 MG SUPP PR PRN (16:50)
[2022-10-03] MEDS ORDERED: IBUPROFEN 600 MG TAB PO PRN (16:50)
[2022-10-03] MEDS ORDERED: ACETAMINOPHEN 325 MG TAB PO PRN (16:50)
[2022-10-03] MEDS ORDERED: oxyCODONE/ACETAMINOPHEN 5mg/325mg TAB PO PRN (16:50)
[2022-10-03] MEDS ORDERED: DIPHTHERIA/TETANUS/PERTUSSIS 0.5mL SYR/VIAL (Age 7+yrs) IM ONE (16:50)
--- NOTE | 2022-10-03 16:56 | Obstetrical Progress Note ---
Date of Service October 03, 2022 Assessment & Plan Admission and Anticipated Discharge Date Admission Date: October 03, 2022 Subjective Patient had urge to push. She pushed through only 1 contraction and deliver the head without difficulty. There was a nuchal cord around the neck x1 which was reduced. The shoulders were delivered with minimal traction. Baby was held by the delivery nurse in a dry clean towel. The cord was clamped timesx2 and cut. And she was taking by nursery team. Patient patient is giving baby for adoption. She did not have epidural for pain. The vagina and perineum were checked for lacerations. There were intact, no lacerations were found. Then the placenta was found to be the vagina, delivered spontaneously as intact and complete. Fundus was firm and EBL was 200 mL. Mom and baby tolerated procedure well. The sponge and instrument count was correct x2. The baby was a viable female infant Apgars 8/9 and weight is pending. No complications happened and I was present during whole procedure. Results & Data Vital Signs (Past 12 Hours) Vital Signs Temp Pulse Resp BP 10/03/22 10:02 36.7 C 10/03/22 16:44 93 H 10/03/22 16:44 169/88 H 10/03/22 16:01 20 10/03/22 16:01 36.3 C L 20 10/03/22 16:01 82 10/03/22 16:01 144/87 H 10/03/22 12:56 67 10/03/22 12:56 148/82 H 10/03/22 12:37 75 10/03/22 12:37 162/91 H 10/03/22 07:57 95 H 133/86
[2022-10-03] MEDS: DOCUSATE SODIUM 100 MG CAP PO SCH ×2 (20:40→20:58)
[2022-10-04] MEDS ORDERED: LABETALOL HCL 100 MG TAB PO ONE ×2 (00:49→09:46)
[2022-10-04 07:09] LABS: Hematocrit (blood only) 30.6 % (37.0-47.0); Hemoglobin 10.2 g/dl (12.0-16.0); Mean Corpuscular Hemoglobin 29.9 pg (25.0-34.0); Mean Corpuscular Hgb Conc 33.3 g/dL (32.0-36.0); Mean Corpuscular Volume 89.7 fL (80.0-100.0); Mean Platelet Volume 10.3 fL (9.4-12.4); Platelet Count 276 K/uL (130-400); RDW Coefficient of Variation 14.6 % (11.5-14.5); RDW Standard Deviation 47.3 fL (36.4-46.3); Red Blood Count 3.41 M/uL (4.20-5.40); White Blood Count 14.16 K/ul (4.8-10.8)
[2022-10-04 07:13] LABS: Albumin Level 2.8 gm/dl (3.4-5.0); Bilirubin,Total 0.3 mg/dl (0.2-1.0); Creatinine Clr Calc Pharmacy 159.8 ml/min; Est GFR (African American) 137.1 ml/min; Est GFR (Non-African American) 118.3 ml/min; Globulin 2.8 gm/dl (2.5-4.0); Total Protein 5.6 gm/dl (6.0-8.3)
[2022-10-04] MEDS ORDERED: PRENATAL VITAMIN 1 TAB PO SCH (08:00)
[2022-10-04] MEDS ORDERED: FERROUS SULFATE 325 MG TAB PO SCH (08:00)
[2022-10-04] MEDS: LABETALOL HCL 100 MG TAB PO SCH (08:23)
[2022-10-04] MEDS: DOCUSATE SODIUM 100 MG CAP PO SCH (08:31)
--- NOTE | 2022-10-04 11:38 | Obstetrical Progress Note ---
Date of Service October 04, 2022 Subjective Ambulation: ambulating normally Voiding: no voiding problems Passing Gas:: Yes Diet Tolerance:: regular diet Lochia:: Small Current Pain Level(1-10): 0 doing well Physical Exam Constitutional WD/WN, vitals as above Gastrointestinal (Abdomen) Inspection/Auscultation: abdomen normal to inspection Musculoskeletal Extremities: extremities normal to inspection Skin no rashes, warm and dry Neurologic patellar DTR's 2+ bilat, sensation intact Psychiatric A+Ox3, euthymic affect Results & Data Vital Signs (Past 12 Hours) Vital Signs Temp Pulse Resp BP BP Pulse Ox O2 Del Method 10/04/22 10:35 80 18 121/75 10/04/22 07:35 36.8 C 73 18 143/99 H 97 Room Air 10/04/22 04:00 36.8 C 76 16 131/87 Room Air 10/04/22 00:45 158/94 H 10/04/22 00:25 37.0 C 80 18 155/99 H Room Air Laboratory Results 10/03/22 10/03/22 10/04/22 08:38 15:00 06:18 WBC 10.25 14.16 H RBC 3.57 L 3.41 L Hgb 10.7 L 10.2 L Hct 32.0 L 30.6 L MCV 89.6 89.7 MCH 30.0 29.9 MCHC 33.4 33.3 RDW Std Deviation 48.0 H 47.3 H RDW Coeff of Patrick 14.7 H 14.6 H Plt Count 284 276 MPV 10.1 10.3 Sodium Potassium Chloride Carbon Dioxide Anion Gap BUN Creatinine Est Cr Clr Drug Dosing Est GFR ( Amer) Est GFR (Non-Af Amer) Fasting Glucose Calcium Total Bilirubin AST ALT Alkaline Phosphatase Total Protein Albumin Globulin Albumin/Globulin Ratio Urine Opiates Screen Neg Ur Methadone, Qual Neg Urine Barbiturates Neg Ur Phencyclidine (PCP) Neg U Amphetamin/Meth Scrn Neg MDMA (Ecstasy) Screen Neg U Benzodiazepines Scrn Neg Ur Cocaine Metabolite Neg U Marijuana (THC) Screen Neg 10/04/22 06:18 WBC RBC Hgb Hct MCV MCH MCHC RDW Std Deviation RDW Coeff of Patrick Plt Count MPV Sodium 136 Potassium 4.0 Chloride 107 Carbon Dioxide 25 Anion Gap 4 BUN 6 Creatinine 0.56 L Est Cr Clr Drug Dosing 159.8 Est GFR ( Amer) 137.1 Est GFR (Non-Af Amer) 118.3 Fasting Glucose 76 Calcium 8.0 L Total Bilirubin 0.3 AST 19 ALT 8 Alkaline Phosphatase 161 H Total Protein 5.6 L Albumin 2.8 L Globulin 2.8 Albumin/Globulin Ratio 1.0 Urine Opiates Screen Ur Methadone, Qual Urine Barbiturates Ur Phencyclidine (PCP) U Amphetamin/Meth Scrn MDMA (Ecstasy) Screen U Benzodiazepines Scrn Ur Cocaine Metabolite U Marijuana (THC) Screen
[2022-10-04] MEDS ORDERED: bisacodyL 5 MG TABEC PO SCH (20:00)
[2022-10-04] MEDS ORDERED: LABETALOL HCL 200 MG TAB PO SCH (21:00)
== END 2022-10-04 12:30 | disposition home or self-care (01) | DRG 806 ==
LOC: 4S1 07:40 → 4E1 19:48